=== PATIENT | male | born 1975 | race Hispanic/Latino ===

== ENCOUNTER 2016-10-20 03:07 | Inpatient (IN) | payer OTHER ==
[~2016-10-20] VITALS: Ht 180.3 cm; Wt 106.2 kg
[~2016-10-20 03:07] MED LIST: BACLOFEN10 M1 PO; BUSPIRONE HCL10 M1 PO; ESCITALOPRAM OX10 MG PO; LYRICA75 M1 PO; MELOXICAM15 M1 PO; OXYCODONE HCL15 M1 PO; PANTOPRAZOLE SO40 M1 PO; PERCOCET 5-3251 EACH PO
--- NOTE | 2016-10-20 03:24 | NUR ---
SEE CODE FLOWSHEET FOR ALL CODE INFORMATION. PATIENT ROSC AT 0324 W/ +L AND R FEMORAL PULSES NOTED BY MD HADDAD AND RNS.
--- NOTE | 2016-10-20 03:25 | NUR ---
0324-BP:108/47, HR:128 0325-300MG AMIODORONE AND 2MG NARCAN ADMINISTERED AT THIS TIME PER MD HADDAD DOSE VERIFIED BY THIS RN, ONEYDA RN AND FRANCISCO RN. HR:109.
--- NOTE | 2016-10-20 03:29 | NUR ---
CENTRAL LINE PLACED W/O DIFFICULTY TO R GROIN BY MD HADDAD. GOOD BLOOD RETURN NOTED TO ALL LUMENS. HR:90. LEVO DRIP BEING PREPARED BY THIS RN, ONEYDA SELLERS AND FRANCISCO SELLERS.
--- NOTE | 2016-10-20 03:32 | NUR ---
LEVO DRIP INITIATED AT 10MCG/MIN PER MD HADDAD BY AYAD RN, FRANCISCO SELLERS AND ONEYDA SELLERS.
--- NOTE | 2016-10-20 03:33 | NUR ---
DE DIOS EST W/O DIFFICULTY BY THIS RN PER MD HADDAD. APPROX 50ML CLEAR YELLOW URINE W/ INSERTION. TRIP OBTAINED AND SENT TO LAB BY JORGE LUIS REYES.
--- NOTE | 2016-10-20 03:34 | ED CRITICAL CARE ---
See Addendum History of Present Illness General Chief Complaint: Cardiopulmonary Resuscitation Stated Complaint: CPR Source: EMS, friend Exam Limitations: clinical condition Vital Signs & Intake/Output Vital Signs & Intake/Output Vital Signs Date Time Temp Pulse Resp B/P Pulse O2 O2 Flow FiO2 Ox Delivery Rate 10/20 0501 94.7 125 141/65 10/20 0448 122 22 109/57 94 Ventilator 60% 10/20 044 60 10/20 0423 94.5 115 22 114/65 100 Ventilator 100% 10/20 0409 100 10/20 0359 87 20 83/49 10/20 0359 87 20 100 Ventilator 100% 10/20 035 145 83/49 10/20 0347 145 98/54 10/20 0332 90 10/20 0310 Aerosol 100% Mask Allergies Coded Allergies: No Known Allergies (08/25/16) Reconcile Medications Baclofen 10 MG TABLET 1 TAB PO TID PAIN (Reported) Buspirone HCl 10 MG TABLET 1 TAB PO DAILY ANXIETY (Reported) Escitalopram Oxalate 10 MG TABLET 1 TAB PO DAILY MENTAL HEALTH (Reported) Meloxicam 15 MG TABLET 1 TAB PO DAILY PAIN (Reported) Oxycodone HCl 15 MG TABLET 1 TAB PO TID PAIN (Reported) Oxycodone HCl/Acetaminophen (Percocet 5-325 MG Tablet) 5 MG-325 MG TABLET 1 TAB PO Q8 PRN PAIN Pantoprazole Sodium 40 MG TABLET.DR 1 TAB PO DAILY GERD (Reported) Pregabalin (Lyrica) 75 MG CAPSULE 1 CAP PO BID PAIN (Reported) Triage Nurses Notes Reviewed? yes Onset: Abrupt Duration: minute(s):, continues in ED Timing: single episode today Injury Environment: home Severity: severe Pain Location: unknown Method of Injury: likely heroin overdose Modifying Factors: Improves With: other (with acls in field). Associated Symptoms: apnea, asystole HPI: 41 yo gentleman h/o heroin abuse, presents intubated from the field in asystolic arrest. Per his girlfriend, "I heard a thump in the bathroom.... It was locked... I went in and found him frothing at the mouth and blue... He wasn't breathing... There was a needle in the sink... I called 911." The medics share that he was pulseless and apneic. He was intubated in the field, received narcan 0.8mg and epi x 3. He went briefly into PEA. Past History Travel History Traveled to [place] past 21 day No Medical History Any Pertinent Medical History? 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 No Review of Systems Review of Systems Constitutional: Reports: no symptoms. Eyes: Reports: no symptoms. Ears, Nose, Throat, Mouth: Reports: no symptoms. Respiratory: Reports: no symptoms. Cardiovascular: Reports: no symptoms. Gastrointestinal/Abdominal: Reports: no symptoms. Genitourinary: Reports: no symptoms. Musculoskeletal: Reports: no symptoms. Skin: Reports: no symptoms. Neurological/Psychological: Reports: no symptoms. All Other Systems: Reviewed and Negative Physical Exam Physical Exam General Appearance: well developed/nourished, severe distress Head: atraumatic Eyes: Bilateral: other (fixed,dilated,no corneal reflx). Ears, Nose, Throat, Mouth: hearing grossly normal, 1cm laceration in inner lip, outer lip Neck: normal inspection Respiratory: symmetric breath sounds with BMV. Cardiovascular: no pulse. no heart sounds with auscultation. 2+ symmetric pulses with chest compressions Peripheral Pulses: 2+ carotid (R), 2+ carotid (L) (with chest compressions), 2+ femoral (R), 2+ femoral (L) Gastrointestinal: soft, mildly distended, well healed scars noted. no bowel sounds Back: normal inspection Extremities: normal range of motion Neurologic/Psych: no corneal reflexes, no response to painful stimuli, no spontaneous respirations Skin: pallor, cool to touch Core Measures ACS in differential dx? No CVA/TIA Diagnosis: No Severe Sepsis Present: Yes Septic Shock Present: Yes Progress Differential Diagnoses I considered the following diagnoses in my evaluation of the patient: heroin overdose vs polysubstance abuse vs cardiac arrest, vs dysrhythmia Plan of Care: Orders Procedure Date/time Status LACTIC ACID 10/20 635 Active Lab Add-on Test 10/20 511 Active VENTILATOR PARAMETERS 01/05 0444 Complete Patient Data 10/20 424 Active SPUTUM INDUCTION (GEN) 10/20 417 Complete VENTILATOR PARAMETERS 10/20 354 Complete Rodriguez, Insertion/Removal/Asses 10/20 350 Active CULTURE,URINE 10/20 350 Active LACTIC ACID 10/20 335 Complete ARTERIAL BLOOD GAS (GEN) 10/20 334 Complete URINE DRUG SCREEN FOR ER ONLY 10/20 334 Complete URINALYSIS 10/20 334 Complete TROPONIN LEVEL 10/20 334 Active PARTIAL THROMBOPLASTIN TIME 10/20 334 Complete PROTHROMBIN TIME 10/20 334 Complete AMMONIA 10/20 334 Active MAGNESIUM 10/20 334 Active LIPASE 10/20 334 Active HEPATIC FUNCTION PANEL 10/20 334 Active ETHANOL 10/20 334 Active CBC WITHOUT DIFFERENTIAL 10/20 334 Complete BASIC METABOLIC PANEL 10/20 334 Active AMYLASE 10/20 334 Active ACETONE 10/20 334 Active EKG 10/20 310 Active Laboratory Tests 10/20/16424: pH 7.22 *L, pCO2 46 H, pO2 260 H, HCO3 19 L, ABG O2 Sat (Measured) 96.0, P-50 (Temp Corrected) Y, Carboxyhemoglobin 2.8, O2 Concentration % 100%, Temperature 94.5 L, Respiration Rate 22, O2 Delivery Method ESPRIT, Vent Mode AC, Expiratory Pressure 5, Tidal Volume 550, Phlebotomy Draw Site LEFT RADIAL 10/20/16334: Lactic Acid 11.3 H 10/20/16334: Anion Gap 24 H, Estimated GFR 52 L, BUN/Creatinine Ratio 7.3, Glucose 357 H, Calcium 8.4, Magnesium Pending, Total Bilirubin 0.3, Direct Bilirubin 0.3, AST 580 H, ALT 618 H, Alkaline Phosphatase 88, Ammonia 56 H, Troponin I < 0.01, Total Protein 5.1 L, Albumin 2.9 L, Amylase 87, Lipase 257, PT 10.8, INR 1.03, APTT 40 H, CBC w Diff MAN DIFF ORDERED, RBC 4.18 L, MCV 90.7, MCH 30.1, RDW 13.0, MPV 8.4, Gran % 24.7 L, Lymphocytes % 70.0 H, Monocytes % 3.0, Eosinophils % 1.3, Basophils % 1.0, Absolute Granulocytes 1.7, Segmented Neutrophils 18 L, Band Neutrophils 4, Absolute Lymphocytes 4.8 H, Lymphocytes 76 H, Monocytes 2, Absolute Monocytes 0.2, Absolute Eosinophils 0.1, Absolute Basophils 0.1, Platelet Estimate ADEQUATE, Polychromasia 1+, Ovalocytes FEW, PUBS MCHC 33.2, Fld Total RBCs Counted 100, Serum Alcohol < 10.0, Acetone Level NEGATIVE 10/20/16 0330: Urine Opiates Screen 1378.00, Methadone Screen 41, Barbiturate Screen < 60, Ur Phencyclidine Scrn < 6.00, Amphetamines Screen < 100, U Benzodiazepines Scrn > 800 H, Urine Cocaine Screen > 1000 H, Urine Cannabis Screen < 5.00, Urinalysis LIGHT H, Urine Color YEL, Urine Clarity HAZY H, Urine pH 6.0, Ur Specific [place] >= 1.030, Urine Protein 30 H, Urine Ketones NEG, Urine Nitrite NEG, Urine Bilirubin NEG, Urine Urobilinogen 0.2, Ur Leukocyte Esterase NEG, Ur Microscopic SEDIMENT EXAMINED, Urine RBC 1-3, Urine WBC RARE, Ur Epithelial Cells RARE, Urine Mucus MOD H, Urine Hemoglobin SMALL H, Urine Glucose NEG Microbiology 10/20 329 URINE ROUT: Urine Culture - RECD Diagnostic Imaging: Viewed by Me: Radiology Read. Discussed w/RAD: Radiology Read. CXR Impression: et tube in good position. Initial ED EKG: afib, rvr, wide complex Comments: PATIENT: ROBERTO BARBER PRESENT AGE: 41 PATIENT ACCOUNT NO: [id number] : 77 LOCATION: [facility] ORDERING PHYSICIAN: VALENTINA HADDAD MD SERVICE DATE: 10/20/16 EXAM TYPE: RAD - XRY-PORTABLE CHEST XRAY EXAMINATION: XR PORTABLE CHEST CLINICAL INFORMATION: Intubation COMPARISON: 08/29/2009 TECHNIQUE: Portable view of the chest was obtained. FINDINGS: Endotracheal tube terminates 4.8 cm from the rachel, in good position. Lung volumes are low. There is mild elevation of the right hemidiaphragm. No consolidation, pneumothorax, or pleural effusion. There is likely atelectasis in the upper lobes bilaterally. Pulmonary vascular structures within normal limits for technique. Cardiac and mediastinal contours are also within normal limits for a supine study. No acute fractures are identified. IMPRESSION: Appropriately positioned endotracheal tube. Low lung volumes. No acute pulmonary findings. DICTATED BY: ARON CAMPBELL MD DATE/TIME DICTATED:10/20/16444 FORESTRY FIRE AID:KALYN DATE/TIME TRANSCRIBED:10/20/16444 CONFIDENTIAL, DO NOT COPY WITHOUT APPROPRIATE AUTHORIZATION. <Electronically signed in Other Vendor System> SIGNED BY: ARON CAMPBELL MD 10/20/16 0451 Departure Departure Disposition: STILL A PATIENT Condition: Stable Clinical Impression Primary Impression: Cardiac arrest Secondary Impressions: Cocaine abuse, Heroin overdose, Lactic acidosis Referrals: DAYDAY BEVERLY,DEB Zendejas (PCP/Family) Departure Forms: General Discharge Information Comments 10/20/15, 4:17am.... discussed w/ dr. mosqueda Admission Note Spoke With: JERRY WAYNE MD Documentation of Exam: Documentation of any treatments & extenuating circumstances including Concerns Regarding Discharge (functional status, medication knowledge or non-compliance, living conditions, etc.) that warrant an admission rather than observation: pt with asystolic arrest, likely due to heroin overdose, now with ROSC after 35 minutes of ACLS protocol (20 in field, 15 in ED). Pt now with systolic blood pressure in low teens on max levophed and dopamine, also on narcan drip. Critical Care Note Critical Care Note Critical Care Time: 30-74 min Comments: pt arrived asystolic --> PEA arrest. Pt received multiple rounds of Epi, bicarb x 2, Narcan 2mg iv x 2, 2 liters normal saline.... Pt went into vfib arrest x 2, requiring multiple electrical cardioversion attempts. Pt acheived ROSC at approximately 15 minutes of ED time, (pt was asystolic in the field x 20 minutes).... He then lost pulses. They returned with epi and chest compressions. Presently 4:34am... pt has sbp in 110's, tolerating the vent, on max dose levophed and dopamine, as well as narcan gtt at 2mg/hour, 2 more liters are infusing.
--- NOTE | 2016-10-20 03:42 | NUR ---
PATIENT HR NOTED 26 ON MONITOR, NO PULSES NOTED TO BILATERAL FEMORAL. O2:80% VIA BAG ON ETT AT THIS TIME. MD AT BEDSIDE W/ RESP THERAPIST, AYAD RN, ONEYDA SELLERS AND FRANCISCO SELLERS. CODE INITIATED.
--- NOTE | 2016-10-20 03:47 | NUR ---
SEE CODE FLOWSHEET FOR ALL CODE DETAILS. ROSC AT 0347 W/ +R AND L FEMORAL PULSES NOTED BY MD HADDAD AND RNS. BP:98/54.
[2016-10-20 03:51] LABS: ABSOLUTE BASOPHIL COUNT 0.1 /CUMM (0.0-0.2); ABSOLUTE EOSINOPHIL COUNT 0.1 /CUMM (0.0-0.7); ABSOLUTE GRANULOCYTE CT 1.7 /CUMM (1.4-6.5); ABSOLUTE LYMPH COUNT 4.8 /CUMM (1.2-3.4); ABSOLUTE MONOCYTE COUNT 0.2 /CUMM (0.10-0.60); EOSINOPHIL % 1.3 % (0-5); HEMATOCRIT 37.9 % (42-52); MEAN CORPUSCULAR HGB 30.1 PG (27.0-31.0); MEAN CORPUSCULAR HGB CONC 33.2 G/DL (33.0-37.0); MEAN CORPUSCULAR VOLUME 90.7 FL (80.0-94.0); MEAN PLATELET VOLUME 8.4 FL (7.4-10.4); PLATELET COUNT 237 /CUMM (130-400); RED BLOOD CELL CT 4.18 /CUMM (4.70-6.10); WHITE BLOOD CELL COUNT 6.9 /CUMM (4.8-10.8)
--- NOTE | 2016-10-20 03:51 | NUR ---
LEVO DRIP INCREASED FROM 10MCG/MIN TO 20 MCG/MIN PER MD HADDAD AT THIS TIME. HR:145 ON MONITOR, BP: 83/49. MD AWARE.
[2016-10-20 03:52] LABS: GRANULOCYTE % 24.7 % (42.2-75.2)
--- NOTE | 2016-10-20 03:55 | NUR ---
THREE LITERS NS INFUSING AT PRESENT, TWO OF THE THREE INFUSING VIA PRESSURE BAGS PER MD.
--- NOTE | 2016-10-20 03:59 | NUR ---
HR:87, O2:99% ON VENT W/ O2 AT 100%. DOPAMINE INFUSING AT 5MCG/KG/MIN PER MD HADDAD, DOSE VERIFIED BY THIS RN, ONEYDA SELLERS AND FRANCISCO SELLERS.
[2016-10-20 04:00] LABS: PT 10.8 SEC (9.4-12.5); PTT 40 SEC (25-37)
--- NOTE | 2016-10-20 04:02 | NUR ---
HR:106. NARCAN DRIP INITIATED AT 2MG/HR PER MD HADDAD, DOSE VERIFIED BY AYAD RN, ONEYDA SELLERS AND FRANCISCO SELLERS.
--- NOTE | 2016-10-20 04:14 | NUR ---
CRITICAL TEST RESULTS [id number] ROBERTO BARBER 41 M TESTS AND RESULTS: LACTIC 11.3 Results received and read back by: AUDELIA AZAR Results received date and time: 10/20/16 0414 The following provider was notified of the results, and read the results back: DR HADDAD Notified date and time: 10/20/16 at 0412
--- NOTE | 2016-10-20 04:30 | NUR ---
4TH LITER NS INITIATED BY ONEYDA SELLERS AT THIS TIME PER EMAR.
--- NOTE | 2016-10-20 04:51 | RADIOLOGY REPORT ---
EXAMINATION: XR PORTABLE CHEST CLINICAL INFORMATION: Intubation COMPARISON: 08/29/2009 TECHNIQUE: Portable view of the chest was obtained. FINDINGS: Endotracheal tube terminates 4.8 cm from the rachel, in good position. Lung volumes are low. There is mild elevation of the right hemidiaphragm. No consolidation, pneumothorax, or pleural effusion. There is likely atelectasis in the upper lobes bilaterally. Pulmonary vascular structures within normal limits for technique. Cardiac and mediastinal contours are also within normal limits for a supine study. No acute fractures are identified. IMPRESSION: Appropriately positioned endotracheal tube. Low lung volumes. No acute pulmonary findings.
--- NOTE | 2016-10-20 04:55 | NUR ---
PATIENTS MOTHER AND GIRLFRIEND AT BEDSIDE, MD HADDAD SPEAKING W/ THEM AT THIS TIME TO PROVIDE UPDATE ON POC AND PATIENT CONDITION. [facility] CALLED PER FAMILY REQUEST AT THIS TIME BY BRENDON REYES.
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
--- NOTE | 2016-10-20 05:27 | NUR ---
HOUSE STAFF REMAINS AT BEDSIDE.
--- NOTE | 2016-10-20 05:50 | NUR ---
PATIENT FAMILY SPEAKING W/ [place], EMOTIONAL SUPPORT BEING PROVIDED.
--- NOTE | 2016-10-20 06:26 | NUR ---
PT ASSIGNED TO ROOM 109 ICU
--- NOTE | 2016-10-20 07:16 | NUR ---
REPORT GIVEN TO CHRIS SELLERS IN ICU.
--- NOTE | 2016-10-20 07:23 | Admission Certification ---
Admission Certification Certification Statement - As attending physician, I certify that at the time of - admission, based on clinical presentation, severity of - symptoms, need for further diagnostic testing and - therapeutic interventions, and risk of adverse outcomes - without in-hospital treatment, in my clinical assessment, - this patient requires an acute hospital stay for a minimum - of two nights or longer. I have also considered psychsocial - factors such as support system, advanced age, financial - issues, cognitive issues, and failed out-patient treatments, - past re-admission history, safety of patient, and lack of - compliance as applicable. Specific rationale supporting this admission is: Status post cardiopulmonary arrest, shock
--- NOTE | 2016-10-20 07:50 | NUR ---
FAMILY AND QA INTERN REMAINS AT BEDSIDE. ICU CHARGE NURSE FAIZA RN TO ED FOR TRANSPORT TO ICU.
--- NOTE | 2016-10-20 08:30 | NUR ---
PT WAS ON VENT UNSPONSIVE IN ER. 0815-PT TRANSPORT TO CT HEAD ON VENT 60%FIO2. THEN PT TRANSPORT TO ICU [address] ON VENT. PT MAINTAI O2SAT>94%, NO ISSUES DURING BOTH TRANSPORTS
--- NOTE | 2016-10-20 08:30 | NUR ---
RECEIVED THE PT FROM THE ER AT 0815, ORALLY INTUBATED AND MECHANICALLY VENTILATED PER MD ORDER. PT'S PUPILS ARE FIXED AMD DILATED, THERE IS NO RESPONSE TO ANY TYPE OF STIMULI, ALL EXTREMITIES ARE FLACCID. PT IS ON LEVOPHED AT 20MCG/MIN WELL DOPAMINE AT 5MCG/KG/MIN, BOTH INFUSING VIA THE WHITE PORT OF THE R FEM TLC. PT IS ALSO ON A NARCAN GTT AT 2MG/HR OR 50ML/HR INFUSING VIA A #20 TO THE RAC. ABD IS DISTENDED AND FIRM WITH NORMOACTIVE BOWEL SOUNDS. ALINE BS WITH SCATTERED RHONCHI THROUGHOUT. DE DIOS IN PLACE DRAINING LG AMOUNTS OF PALE YELLOW URINE.
--- NOTE | 2016-10-20 08:43 | CT SCAN REPORT ---
EXAMINATION: NONCONTRAST HEAD CT NONCONTRAST NECK CT INDICATION INFORMATION: Status post fall and loss of consciousness with cardiac arrest COMPARISON: None TECHNIQUE: Separate noncontrast CT examinations of the head and neck were performed. Coronal and sagittal images were created for each examination at the technologist workstation. DLP: 1108.70 mGy-cm FINDINGS: Head: There is significant decrease in syed-white differentiation throughout the cerebral hemispheres, in keeping with edema. There is also effacement of the basilar cisterns. There may be focal dilation of the temporal horns, left greater than right, with the ventricles otherwise appearing decreased in size. No definite acute intracranial hemorrhage is seen, though assessment is limited given the extensive edema. No midline shift. The osseous structures and soft tissues are normal. There is mucosal thickening of the maxillary sinuses and ethmoid air cells bilaterally. The mastoid air cells are well-aerated. Neck: There is anatomic alignment of the vertebral bodies and posterior elements. Vertebral body heights and intervertebral disc spaces are maintained. Mild anterior osteophytes are noted in the lower cervical spine. No evidence of acute fracture. No prevertebral soft tissue swelling. There are several mildly prominent cervical lymph nodes bilaterally. There are patchy regions of consolidation and groundglass opacity in the right upper lobe. Dependent opacity is also present in the left lung. The thyroid gland is unremarkable. IMPRESSION: 1. Diffuse cerebral edema, in keeping with hypoxic ischemic injury in the setting of cardiac arrest. 2. No acute findings identified in the cervical spine. 3. Bilateral upper lung airspace opacities, right greater than left. This critical result was discussed with Lakhwinder Manrique MD on 10/20/2016 8:37 AM, and it was ascertained that the content and urgency of the report was understood at the time of direct communication.
[2016-10-20 08:45] VITALS: BP 100/70; BP 95/62
--- NOTE | 2016-10-20 08:51 | Cons- Cardiology ---
General Information and HPI Consulting Request Date of Consult: 10/20/16 Requested By: JERRY WAYNE MD Reason for Consult: cardiac evaluation postcardiac arrest Source of Information: old records Exam Limitations: unable to give history History of Present Illness: the patient is a 41-year-old male with a history of substance abuse. The patient is currently in the ICU following resuscitation after being found unresponsive by paramedics. The patient was locked in the bath room. He was found on the floor unresponsive. When paramedics arrived, the patient was pulseless and apneic. He was intubated in the field. He received Narcan and epinephrine.he subsequently had pulseless electrical activity. 15 minutes of CPR was performed. In the emergency room, he was asystolic. Multiple rounds of medication were given. Multiple electrical cardioversion were attempted. Ultimately rhythm was restored. Since arrival in the ICU, he has been in sinus tachycardia, on multiple pressors. Allergies/Medications Allergies: Coded Allergies: No Known Allergies (08/25/16) Home Med List: Baclofen 10 MG TABLET 1 TAB PO TID PAIN (Reported) Buspirone HCl 10 MG TABLET 1 TAB PO DAILY ANXIETY (Reported) Escitalopram Oxalate 10 MG TABLET 1 TAB PO DAILY MENTAL HEALTH (Reported) Meloxicam 15 MG TABLET 1 TAB PO DAILY PAIN (Reported) Oxycodone HCl 15 MG TABLET 1 TAB PO TID PAIN (Reported) Oxycodone HCl/Acetaminophen (Percocet 5-325 MG Tablet) 5 MG-325 MG TABLET 1 TAB PO Q8 PRN PAIN Pantoprazole Sodium 40 MG TABLET.DR 1 TAB PO DAILY GERD (Reported) Pregabalin (Lyrica) 75 MG CAPSULE 1 CAP PO BID PAIN (Reported) Current Medications: Current Medications Sig/Rose Start time Last Medication Dose Route Stop Time Status Admin Artificial Tears 2 GTT TID 10/20 1000 AC OPH Dopamine HCl 400 MG ONCE ONE 10/20 0400 AC 10/20 Dextrose/Water 500 ML IV 11/09 2358 0359 Naloxone HCl 20 MG ONCE ONE 10/20 399 AC 10/20 Sodium Chloride 500 ML IV 11/09 2358 0402 Norepinephrine 0 .STK-MED ONE 10/20 0719 DC IV Norepinephrine 4 MG Q24H 10/20 0400 AC 10/20 Dextrose/Water 250 ML IV 0332 Sodium Chloride 1,000 ML Q10H 10/20 0630 AC IV Sodium Chloride 1,000 ML BOLUS ONE 10/20 0400 DC / IV 10/20 0459 0430 Sodium Chloride 1,000 ML BOLUS ONE 10/20 0400 DC / IV 10/20 0459 0355 Sodium Chloride 1,000 ML BOLUS ONE 10/20 0400 DC / IV 10/20 0459 0355 Sodium Chloride 1,000 ML BOLUS ONE 10/20 0400 DC 10/20 IV 10/20 045 0355 Past History Travel History Traveled to [place] past 21 day No Medical History Neurological: NONE EENT: NONE Cardiovascular: NONE Respiratory: NONE Gastrointestinal: HERNIA MESH INFECTION Hepatic: NONE Renal: NONE Musculoskeletal: NONE Psychiatric: anxiety, substance abuse, PTSD Endocrine: NONE Blood Disorders: NONE Cancer(s): 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 Surgical History Surgical History: COLOSTOMY AND REVERSAL Psychosocial History Illicit Drug Use: heroin Exam & Diagnostic Data Vital Signs and I&O Vital Signs Date Time Temp Pulse Resp B/P Pulse O2 O2 Flow FiO2 Ox Delivery Rate 10/20 0749 95.6 147 22 90/60 95 Ventilator 60% 10/20 0630 60 10/20 0536 122 22 113/52 93 Ventilator 60% 10/20 0501 94.7 125 141/65 10/20 0448 122 22 109/57 94 Ventilator 60% 10/20 0442 60 / 0423 94.5 115 22 114/65 100 Ventilator 100% 10/20 0409 100 / 0359 87 20 83/49 10/20 0359 87 20 100 Ventilator 100% 10/20 0351 145 83/49 10/20 0347 145 98/54 10/20 0332 90 10/20 0310 Aerosol 100% Mask Intake & Output 10/20 1600 10/20 0810/20 0000 10/19 1600 10/19 0810/19 0000 Intake Total Output Total 3650 Balance -3650 Output, Urine 3650 Patient 210 lb Weight Physical Exam: General Appearance UNRESPONSIVE, intubated Skin normal HEENT Atraumatic (ET tube intact) Neck Supple, No JVD Lymphatic Cervical nl Cardiovascular Regular Rate, Normal S1, Normal S2, No Murmurs Lungs coarse breath sounds b/l Abdomen distended Neurological pupils a nonreactive light or accommodation, remaining of neurological exam was deferred as patient is unresponsive Extremities No Edema Labs/Zach Results: Laboratory Tests 10/20 10/20 10/20 0825 0425 0335 Blood Gas pH (7.35 - 7.45 PH) 7.25 *L 7.22 *L pCO2 (35 - 45 TORR) 46 H 46 H pO2 (80 - 100 TORR) 99 260 H HCO3 (21 - 28 MEQ/L) 20 L 19 L ABG O2 Sat (Measured) (>96.0 %) 95.0 L 96.0 P-50 (Temp Corrected) Y Carboxyhemoglobin (1.5 - 5.0 %) 1.2 L 2.8 O2 Concentration % 60 100% Temperature (97.0 - 100.0 FARH) 94.5 L Respiration Rate (BPM) 22 22 O2 Delivery Method VENT ESPRIT Vent Mode AC AC Expiratory Pressure (CMH2O/P) 5 5 Tidal Volume (CC) 550 550 Chemistry Lactic Acid (0.7 - 2.1 mmol/L) 11.3 H Miscellaneous Phlebotomy Draw Site LEFT RADIAL LEFT RADIAL 10/20 10/20 0335 0330 Chemistry Sodium (137 - 145 mmol/L) 139 Potassium (3.5 - 5.1 mmol/L) 4.0 Chloride (98 - 107 mmol/L) 95 L Carbon Dioxide (22 - 30 mmol/L) 19 L Anion Gap (5 - 16) 24 H BUN (9 - 20 mg/dL) 11 Creatinine (0.7 - 1.2 mg/dL) 1.5 H Estimated GFR (>60 ml/min) 52 L BUN/Creatinine Ratio (7 - 25 %) 7.3 Glucose (65 - 99 mg/dL) 357 H Calcium (8.4 - 10.2 mg/dL) 8.4 Magnesium (1.6 - 2.3 mg/dL) 3.7 H Total Bilirubin (0.2 - 1.3 mg/dL) 0.3 Direct Bilirubin (< 0.4 mg/dL) 0.3 AST (17 - 59 U/L) 580 H ALT (21 - 72 U/L) 618 H Alkaline Phosphatase (< 127 U/L) 88 Ammonia (9 - 30 umol/L) 56 H Troponin I (<0.11 ng/ml) < 0.01 Total Protein (6.3 - 8.2 g/dL) 5.1 L Albumin (3.5 - 5.0 g/dL) 2.9 L Amylase (30 - 110 U/L) 87 Lipase (23 - 300 U/L) 257 Coagulation PT (9.4 - 12.5 SEC) 10.8 INR (0.90 - 1.17) 1.03 APTT (25 - 37 SEC) 40 H Hematology CBC w Diff MAN DIFF ORDERED WBC (4.8 - 10.8 /CUMM) 6.9 RBC (4.70 - 6.10 /CUMM) 4.18 L Hgb (14.0 - 18.0 G/DL) 12.6 L Hct (42 - 52 %) 37.9 L MCV (80.0 - 94.0 FL) 90.7 MCH (27.0 - 31.0 PG) 30.1 RDW (11.5 - 14.5 %) 13.0 Plt Count (130 - 400 /CUMM) 237 MPV (7.4 - 10.4 FL) 8.4 Gran % (42.2 - 75.2 %) 24.7 L Lymphocytes % (20.5 - 51.1 %) 70.0 H Monocytes % (1.7 - 9.3 %) 3.0 Eosinophils % (0 - 5 %) 1.3 Basophils % (0.0 - 2.0 %) 1.0 Absolute Granulocytes (1.4 - 6.5 /CUMM) 1.7 Segmented Neutrophils (42.2 - 75.2 %) 18 L Band Neutrophils (0.0 - 5.0 %) 4 Absolute Lymphocytes (1.2 - 3.4 /CUMM) 4.8 H Lymphocytes (20.5 - 51.1 %) 76 H Monocytes (1.7 - 9.3 %) 2 Absolute Monocytes (0.10 - 0.60 /CUMM) 0.2 Absolute Eosinophils (0.0 - 0.7 /CUMM) 0.1 Absolute Basophils (0.0 - 0.2 /CUMM) 0.1 Platelet Estimate (ADEQUATE) ADEQUATE Polychromasia 1+ Ovalocytes FEW PUBS MCHC (33.0 - 37.0 G/DL) 33.2 Other Body Source Fld Total RBCs Counted (%) 100 Toxicology Urine Opiates Screen (>2000 NG/ML) 1378.00 Methadone Screen (>300 NG/ML) 41 Barbiturate Screen (>200 NG/ML) < 60 Ur Phencyclidine Scrn (>25 NG/ML) < 6.00 Amphetamines Screen (>1000 NG/ML) < 100 U Benzodiazepines Scrn (>200 NG/ML) > 800 H Urine Cocaine Screen (>300 NG/ML) > 1000 H Urine Cannabis Screen (>50 NG/ML) < 5.00 Serum Alcohol (<10 MG/DL) < 10.0 Acetone Level (NEGATIVE) NEGATIVE Urines Urinalysis LIGHT H Urine Color (YEL,AMB,STR) YEL Urine Clarity (CLEAR) HAZY H Urine pH (5.0 - 8.0) 6.0 Ur Specific [place] (1.001 - 1.035) >= 1.030 Urine Protein (NEG,<30 MG/DL) 30 H Urine Ketones (NEG) NEG Urine Nitrite (NEG) NEG Urine Bilirubin (NEG) NEG Urine Urobilinogen (0.1 - 1.0 EU/dl) 0.2 Ur Leukocyte Esterase (NEG) NEG Ur Microscopic SEDIMENT EXAMINED Urine RBC (0 - 5 /HPF) 1-3 Urine WBC (0 - 2 /HPF) RARE Ur Epithelial Cells (NONE,FEW) RARE Urine Mucus (FEW,NONE) MOD H Urine Hemoglobin (NEG) SMALL H Urine Glucose (N MG/DL) NEG Diagnostic Data CXR Results FINDINGS: Endotracheal tube terminates 4.8 cm from the rachel, in good position. Lung volumes are low. There is mild elevation of the right hemidiaphragm. No consolidation, pneumothorax, or pleural effusion. There is likely atelectasis in the upper lobes bilaterally. Pulmonary vascular structures within normal limits for technique. Cardiac and mediastinal contours are also within normal limits for a supine study. No acute fractures are identified. IMPRESSION: Appropriately positioned endotracheal tube. Low lung volumes. No acute pulmonary findings. Assessment/Plan Assessment/Plan assessment: 1. Status post cardiac arrest, likely related to overdose 2. Bilateral pulmonary infiltrates 3. Acute organ dysfunction likely re related to hypotension and hypoperfusion 4. Acute renal insufficiency 5. Shock liver 6. GI bleed 7. Probable anoxic encephalopathy Recommendations: -Continue all supportive care as outlined -Trend troponin until decreasing -ECG later today and again in the morning -Echocardiogram to assess left ventricular function -Neurology input pending Consult Acknowledgment - Thank you for your consult request.
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
[2016-10-20 10:00] VITALS: BP 98/74
--- NOTE | 2016-10-20 10:37 | RADIOLOGY REPORT ---
EXAMINATION: XR PORTABLE CHEST CLINICAL INFORMATION: Aspiration pneumonia. Status post intubation. COMPARISON: 10/20/2016 TECHNIQUE: Portable view of the chest was obtained. FINDINGS: The endotracheal tube terminates 4.5 cm above the rachel. Enteric tube extends through the esophagus, terminating in the region of the gastroesophageal junction. Cardiac leads overlie the chest. Low lung volumes. Persistent retrocardiac opacity with air bronchograms. Patchy right perihilar opacity. No pneumothorax. No pleural effusion. The cardiomediastinal silhouette is unchanged. IMPRESSION: 1. Endotracheal tube terminating 4.5 cm above the rachel. 2. Enteric tube terminating in the region of the gastroesophageal junction. Advancement recommended. 3. Persistent retrocardiac opacity which could represent aspiration, atelectasis or pneumonia.
--- NOTE | 2016-10-20 10:39 | RADIOLOGY REPORT ---
EXAMINATION: XR ABDOMEN CLINICAL INDICATION: Status post repair for incarcerated hernia. COMPARISON: 08/30/2009 TECHNIQUE: Portable supine view of the abdomen FINDINGS: The enteric tube terminates in the region of the gastroesophageal junction. There is a right femoral vascular catheter noted which appears looped on itself. The stomach is distended with gas. Gas is seen within nondilated small and large bowel. This does not appear obstructive. No acute osseous abnormality. IMPRESSION: Gaseous distention of the stomach. Scattered gas in small and large bowel. Enteric tube terminating in the region of the gastroesophageal junction. Advancement recommended. Right femoral vascular catheter appears looped on itself. Repositioning suggested.
--- NOTE | 2016-10-20 10:51 | NUR ---
DISCUSSED CASE WITH ORGAN REEL HOOKER WITH HISTORY DISCLOSURE AND CASE DISCUSSION DONE FOR REFERRAL PROCESS. ORGAN REEL HOOKER NAMED LUIS BUCHANAN, CASE #[id number].
[2016-10-20 12:00] VITALS: BP 107/76
[2016-10-20 12:37] LABS: ABSOLUTE EOSINOPHIL COUNT 0.1 /CUMM (0.0-0.7); ABSOLUTE GRANULOCYTE CT 12.6 /CUMM (1.4-6.5); EOSINOPHIL % 0.7 % (0-5)
[2016-10-20 12:45] LABS: ABSOLUTE BASOPHIL COUNT 0 /CUMM (0.0-0.2); ABSOLUTE LYMPH COUNT 2.4 /CUMM (1.2-3.4); ABSOLUTE MONOCYTE COUNT 0.7 /CUMM (0.10-0.60); BASOPHIL % 0.3 % (0.0-2.0); MEAN CORPUSCULAR HGB 29.9 PG (27.0-31.0); MEAN CORPUSCULAR HGB CONC 33.1 G/DL (33.0-37.0); MEAN CORPUSCULAR VOLUME 90.4 FL (80.0-94.0); PLATELET COUNT 288 /CUMM (130-400); RBC DISTRIBUTION WIDTH 13.3 % (11.5-14.5)
[2016-10-20 12:46] LABS: GRANULOCYTE % 79.5 % (42.2-75.2); HEMATOCRIT 51.3 % (42-52); RED BLOOD CELL CT 5.68 /CUMM (4.70-6.10); WHITE BLOOD CELL COUNT 15.9 /CUMM (4.8-10.8)
[2016-10-20 14:00] VITALS: BP 162/98
--- NOTE | 2016-10-20 14:45 | NUR ---
PT IS HAVING A BEDSIDE ECHO PERFORMED.
--- NOTE | 2016-10-20 15:01 | Cons- Neurology ---
See Addendum General Information and HPI Consulting Request Date of Consult: 10/20/16 Requested By: JERRY WAYNE MD Reason for Consult: anoxic brain injury Source of Information: old records, icu staff Exam Limitations: unable to give history History of Present Illness: 41-year-old man found unresponsive at home not breathing and pulseless. From the medical record it appears he had locked himself in the bathroom and injected heroin, a syringe was apparently found. EMT began CPR, pulseless electric trickle activity was found, CPR was continued in the emergency department. No seizures have been recognized, no prior neurologic history known. Apparently the cooling protocol was deferred on admission to the ICU. Allergies/Medications Allergies: Coded Allergies: No Known Allergies (08/25/16) Home Med List: Baclofen 10 MG TABLET 1 TAB PO TID PAIN (Reported) Buspirone HCl 10 MG TABLET 1 TAB PO DAILY ANXIETY (Reported) Escitalopram Oxalate 10 MG TABLET 1 TAB PO DAILY MENTAL HEALTH (Reported) Meloxicam 15 MG TABLET 1 TAB PO DAILY PAIN (Reported) Oxycodone HCl 15 MG TABLET 1 TAB PO TID PAIN (Reported) Oxycodone HCl/Acetaminophen (Percocet 5-325 MG Tablet) 5 MG-325 MG TABLET 1 TAB PO Q8 PRN PAIN Pantoprazole Sodium 40 MG TABLET.DR 1 TAB PO DAILY GERD (Reported) Pregabalin (Lyrica) 75 MG CAPSULE 1 CAP PO BID PAIN (Reported) Current Medications: Current Medications Sig/Rose Start time Last Medication Dose Route Stop Time Status Admin Artificial Tears 2 GTT TID 10/20 1000 AC OPH Calcium Gluconate 1 GM ONCE ONE 10/20 141 AC Sodium Chloride 100 ML IV 10/20 1514 Dextrose 25 GM ONCE ONE 10/20 1415 DC IV 10/20 1416 Dopamine HCl 400 MG ONCE ONE 10/20 0400 AC 10/20 Dextrose/Water 500 ML IV 11/09 2359 0359 Insulin Human Regular 10 UNITS ONCE ONE 10/20 1415 DC IV 10/20 141 Naloxone HCl 20 MG ONCE ONE 10/20 0400 AC 10/20 Sodium Chloride 500 ML IV 11/09 2359 0402 Norepinephrine 4 MG Q7H 10/20 1030 AC 10/20 Dextrose/Water 250 ML IV 1105 Norepinephrine 0 .STK-MED ONE 10/20 0719 DC IV Norepinephrine 4 MG Q24H 10/20 0400 DC 10/20 Dextrose/Water 250 ML IV 0332 Pantoprazole Sodium 40 MG BID 10/20 1013 AC 10/20 IV 1048 Sodium Chloride 1,000 ML Q10H 10/20 0630 AC 10/20 IV 0914 Sodium Chloride 1,000 ML BOLUS ONE 10/20 0400 DC 10/20 IV 10/20 0459 0430 Sodium Chloride 1,000 ML BOLUS ONE 10/20 0400 DC 10/20 IV 10/20 0459 0355 Sodium Chloride 1,000 ML BOLUS ONE 10/20 0400 DC 10/20 IV 10/20 0459 0355 Sodium Chloride 1,000 ML BOLUS ONE 10/20 0400 DC 10/20 IV 10/20 0459 0355 Sodium Polystyrene 120 ML ONCE ONE 10/20 1330 CAN Sulfonate PO 10/20 1331 Vasopressin 40 UNIT Q16H 10/20 1045 AC 10/20 Sodium Chloride 100 ML IV 1049 Review of Systems Review of Systems: unobtainable Past History Travel History Traveled to [place] past 21 day No Medical History Blood Transfusion Hx: No Neurological: NONE EENT: NONE Cardiovascular: NONE Respiratory: NONE Gastrointestinal: HERNIA MESH INFECTION Hepatic: NONE Renal: NONE Musculoskeletal: NONE Psychiatric: anxiety, substance abuse, PTSD Endocrine: NONE Blood Disorders: NONE Cancer(s): NONE 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 Home Services at Home: None Smoking Status: Current Everyday Smoker Illicit Drug Use: heroin Exam & Diagnostic Data Vital Signs and I&O Vital Signs Date Time Temp Pulse Resp B/P Pulse O2 O2 Flow FiO2 Ox Delivery Rate 10/20 1410 40 10/20 1400 99.9 136 22 162/98 10/20 1200 99.9 133 22 107/76 10/20 1200 94 Ventilator 50% 10/20 1154 50 10/20 1105 98.0 131 22 87/57 10/20 1000 98.0 140 22 98/74 10/20 0845 98.0 148 22 95/62 10/20 0845 98.0 148 22 100/70 94 Ventilator 60% 10/20 0830 94 Ventilator 60% 10/20 0825 60 10/20 0749 95.6 147 22 90/60 95 Ventilator 60% 10/20 0630 60 10/20 0536 122 22 113/52 93 Ventilator 60% 10/20 0501 94.7 125 141/65 10/20 0448 122 22 109/57 94 Ventilator 60% 10/20 0442 60 10/20 0423 94.5 115 22 114/65 100 Ventilator 100% 10/20 0409 100 10/20 0359 87 20 83/49 10/20 0359 87 20 100 Ventilator 100% 10/20 0351 145 83/49 10/20 0347 145 98/54 10/20 0332 90 10/20 0310 Aerosol 100% Mask Intake & Output 10/20 1600 10/20 0800 10/20 0000 Intake Total 1764 Output Total 1695 3650 Balance 69 -3650 Intake, IV 1764 Output, 70 Gastric Drainage Output, Urine 1625 3650 Patient 210 lb Weight Physical Exam: The patient is lying motionless intubated with no spontaneous respirations even on holding the ventilator 20 seconds. Skin color is good. Pupils are dilated and fixed. Scopic exam still shows sharp disc margins but the cups are effaced and veins engorged. No response to nail bed pressure or supraorbital pressure bilaterally. Oculocephalic reflexes absent, Corneal reflexes absent. No gag on manipulation of the ET tube. Motor tone flaccid. Tendon reflexes still present, plantar responses silent. Remaining elements of the complete neurologic exam cannot be performed due to the clinical state. Last 48 Hours of Lab Results: Laboratory Tests 10/20 10/20 10/20 1125 1125 1024 Blood Gas pH (7.35 - 7.45 PH) 7.28 *L pCO2 (35 - 45 TORR) 43 pO2 (80 - 100 TORR) 118 H HCO3 (21 - 28 MEQ/L) 18 L ABG O2 Sat (Measured) (>96.0 %) 97.0 Carboxyhemoglobin (1.5 - 5.0 %) 0.6 L O2 Concentration % 50% Temperature (97.0 - 100.0 FARH) 98.0 Respiration Rate (BPM) 22 O2 Delivery Method ESPRIT Vent Mode VC-AC Expiratory Pressure (CMH2O/P) 5 Tidal Volume (CC) 550 Chemistry Sodium (137 - 145 mmol/L) 147 H Potassium (3.5 - 5.1 mmol/L) 6.0 *H Chloride (98 - 107 mmol/L) 107 Carbon Dioxide (22 - 30 mmol/L) 27 Anion Gap (5 - 16) 13 BUN (9 - 20 mg/dL) 18 Creatinine (0.7 - 1.2 mg/dL) 1.7 H Estimated GFR (>60 ml/min) 45 L BUN/Creatinine Ratio (7 - 25 %) 10.6 Lactic Acid (0.7 - 2.1 mmol/L) 1.5 Phosphorus (2.5 - 4.5 mg/dL) 6.1 H Magnesium (1.6 - 2.3 mg/dL) 2.4 H Total Bilirubin (0.2 - 1.3 mg/dL) 0.5 Direct Bilirubin (< 0.4 mg/dL) 0.4 AST (17 - 59 U/L) 1501 H ALT (21 - 72 U/L) 1349 H Alkaline Phosphatase (< 127 U/L) 110 Troponin I (<0.11 ng/ml) 7.76 *H Total Protein (6.3 - 8.2 g/dL) 6.9 Albumin (3.5 - 5.0 g/dL) 3.9 Hematology CBC w Diff NO MAN DIFF REQ WBC (4.8 - 10.8 /CUMM) 15.9 H RBC (4.70 - 6.10 /CUMM) 5.68 Hgb (14.0 - 18.0 G/DL) 17.0 Hct (42 - 52 %) 51.3 MCV (80.0 - 94.0 FL) 90.4 MCH (27.0 - 31.0 PG) 29.9 RDW (11.5 - 14.5 %) 13.3 Plt Count (130 - 400 /CUMM) 288 MPV (7.4 - 10.4 FL) 8.0 Gran % (42.2 - 75.2 %) 79.5 H Lymphocytes % (20.5 - 51.1 %) 14.9 L Monocytes % (1.7 - 9.3 %) 4.6 Eosinophils % (0 - 5 %) 0.7 Basophils % (0.0 - 2.0 %) 0.3 Absolute Granulocytes (1.4 - 6.5 /CUMM) 12.6 H Absolute Lymphocytes (1.2 - 3.4 /CUMM) 2.4 Absolute Monocytes (0.10 - 0.60 /CUMM) 0.7 H Absolute Eosinophils (0.0 - 0.7 /CUMM) 0.1 Absolute Basophils (0.0 - 0.2 /CUMM) 0 PUBS MCHC (33.0 - 37.0 G/DL) 33.1 Miscellaneous Phlebotomy Draw Site RIGHT RADIAL 10/20 10/20 10/20 10/20 0900 0830 0425 0335 Blood Gas pH (7.35 - 7.45 PH) 7.25 *L 7.22 *L pCO2 (35 - 45 TORR) 46 H 46 H pO2 (80 - 100 TORR) 99 260 H HCO3 (21 - 28 MEQ/L) 20 L 19 L ABG O2 Sat (Measured) (>96.0 %) 95.0 L 96.0 P-50 (Temp Corrected) Y Carboxyhemoglobin (1.5 - 5.0 %) 1.2 L 2.8 O2 Concentration % 60 100% Temperature (97.0 - 100.0 FARH) 94.5 L Respiration Rate (BPM) 22 22 O2 Delivery Method VENT ESPRIT Vent Mode AC AC Expiratory Pressure (CMH2O/P) 5 5 Tidal Volume (CC) 550 550 Chemistry Lactic Acid (0.7 - 2.1 mmol/L) 11.3 H Troponin I Cancelled Miscellaneous Phlebotomy Draw Site LEFT RADIAL LEFT RADIAL 10/20 10/20 0335 0330 Chemistry Sodium (137 - 145 mmol/L) 139 Potassium (3.5 - 5.1 mmol/L) 4.0 Chloride (98 - 107 mmol/L) 95 L Carbon Dioxide (22 - 30 mmol/L) 19 L Anion Gap (5 - 16) 24 H BUN (9 - 20 mg/dL) 11 Creatinine (0.7 - 1.2 mg/dL) 1.5 H Estimated GFR (>60 ml/min) 52 L BUN/Creatinine Ratio (7 - 25 %) 7.3 Glucose (65 - 99 mg/dL) 357 H Calcium (8.4 - 10.2 mg/dL) 8.4 Magnesium (1.6 - 2.3 mg/dL) 3.7 H Total Bilirubin (0.2 - 1.3 mg/dL) 0.3 Direct Bilirubin (< 0.4 mg/dL) 0.3 AST (17 - 59 U/L) 580 H ALT (21 - 72 U/L) 618 H Alkaline Phosphatase (< 127 U/L) 88 Ammonia (9 - 30 umol/L) 56 H Troponin I (<0.11 ng/ml) < 0.01 Total Protein (6.3 - 8.2 g/dL) 5.1 L Albumin (3.5 - 5.0 g/dL) 2.9 L Amylase (30 - 110 U/L) 87 Lipase (23 - 300 U/L) 257 Coagulation PT (9.4 - 12.5 SEC) 10.8 INR (0.90 - 1.17) 1.03 APTT (25 - 37 SEC) 40 H Hematology CBC w Diff MAN DIFF ORDERED WBC (4.8 - 10.8 /CUMM) 6.9 RBC (4.70 - 6.10 /CUMM) 4.18 L Hgb (14.0 - 18.0 G/DL) 12.6 L Hct (42 - 52 %) 37.9 L MCV (80.0 - 94.0 FL) 90.7 MCH (27.0 - 31.0 PG) 30.1 RDW (11.5 - 14.5 %) 13.0 Plt Count (130 - 400 /CUMM) 237 MPV (7.4 - 10.4 FL) 8.4 Gran % (42.2 - 75.2 %) 24.7 L Lymphocytes % (20.5 - 51.1 %) 70.0 H Monocytes % (1.7 - 9.3 %) 3.0 Eosinophils % (0 - 5 %) 1.3 Basophils % (0.0 - 2.0 %) 1.0 Absolute Granulocytes (1.4 - 6.5 /CUMM) 1.7 Segmented Neutrophils (42.2 - 75.2 %) 18 L Band Neutrophils (0.0 - 5.0 %) 4 Absolute Lymphocytes (1.2 - 3.4 /CUMM) 4.8 H Lymphocytes (20.5 - 51.1 %) 76 H Monocytes (1.7 - 9.3 %) 2 Absolute Monocytes (0.10 - 0.60 /CUMM) 0.2 Absolute Eosinophils (0.0 - 0.7 /CUMM) 0.1 Absolute Basophils (0.0 - 0.2 /CUMM) 0.1 Platelet Estimate (ADEQUATE) ADEQUATE Polychromasia 1+ Ovalocytes FEW PUBS MCHC (33.0 - 37.0 G/DL) 33.2 Other Body Source Fld Total RBCs Counted (%) 100 Toxicology Urine Opiates Screen (>2000 NG/ML) 1378.00 Methadone Screen (>300 NG/ML) 41 Barbiturate Screen (>200 NG/ML) < 60 Ur Phencyclidine Scrn (>25 NG/ML) < 6.00 Amphetamines Screen (>1000 NG/ML) < 100 U Benzodiazepines Scrn (>200 NG/ML) > 800 H Urine Cocaine Screen (>300 NG/ML) > 1000 H Urine Cannabis Screen (>50 NG/ML) < 5.00 Serum Alcohol (<10 MG/DL) < 10.0 Acetone Level (NEGATIVE) NEGATIVE Urines Urinalysis LIGHT H Urine Color (YEL,AMB,STR) YEL Urine Clarity (CLEAR) HAZY H Urine pH (5.0 - 8.0) 6.0 Ur Specific [place] (1.001 - 1.035) >= 1.030 Urine Protein (NEG,<30 MG/DL) 30 H Urine Ketones (NEG) NEG Urine Nitrite (NEG) NEG Urine Bilirubin (NEG) NEG Urine Urobilinogen (0.1 - 1.0 EU/dl) 0.2 Ur Leukocyte Esterase (NEG) NEG Ur Microscopic SEDIMENT EXAMINED Urine RBC (0 - 5 /HPF) 1-3 Urine WBC (0 - 2 /HPF) RARE Ur Epithelial Cells (NONE,FEW) RARE Urine Mucus (FEW,NONE) MOD H Urine Hemoglobin (NEG) SMALL H Urine Glucose (N MG/DL) NEG Imaging/Other Studies: CT head: There is significant decrease in syed-white differentiation throughout the cerebral hemispheres, in keeping with edema. There is also effacement of the basilar cisterns. There may be focal dilation of the temporal horns, left greater than right, with the ventricles otherwise appearing decreased in size. No definite acute intracranial hemorrhage is seen, though assessment is limited given the extensive edema. No midline shift. Assessment/Plan Assessment: Anoxic brain injury day 1. Prolonged pulselessness. On bedside exam no sign of cerebral activity and changes on CT are a very poor prognostic sign. Recommendations: maintain support another 24h EEG tomorrow if not clinically improved then, eeg shows loss of activity then further evaluation for brain Consult Acknowledgment - Thank you for your consult request.
--- NOTE | 2016-10-20 15:44 | NUR ---
PT'S K+ FROM 1125 WAS 6.0. INITIALLY THE PT WAS ORDERED KAEXYLATE 120ML PO. THE NGT IS NOT PLACE AND CANNOT BE ADVANCED WITHOUT MEETING RESISTANCE THE ORDER WAS DC'D AND INSTEAD THE PT WAS ADMINISTERED CA GLUCONATE 1 GM/D50 25GM AND INSULIN 10U IV AT 1515. REPEAT LABS DUE AT 1800.
--- NOTE | 2016-10-20 15:53 | NUR ---
THROUGHOUT THE DAY THE PT'S PRESSORS WERE TITRATED. INITIALLY ATTEMPTED TO WEAN THE DOPAMINE DOWN AT 0915 FROM 5MG/KG/MIN TO 4MCG. BY 1015 THE BP HAD DECREASED TO THE 70'S TO 80'S AND THE DOPAMINE WAS RETURNED TO 5MCG. PER DR BAZAN VASOPRESSIN WAS ADDED AT 1052 AT A RATE OF 0.02UNITS/MIN OR 6ML/HR. AT 1130 THE PT'S BP WAS 112/88 AND THE DOPAMINE TITRATION WAS INITIATED AGAIN-GOING DOWN BY 1MCG/MIN. BY 1345 THE PT'S BP WAS 144/91, AT THIS TIME THE DOPAMINE GTT WAS STOPPED AND DR SOFIA STREET WAS INFORMED. AT 1400 THE PT'S BP HAD INCREASED TO 162/98 AND AT THAT TIME AFTER DISCUSSION WITH DR STREET THE LEVO DRIP WAS STOPPED. PT REMAINS ON THE VASOPRESSIN AT THIS TIME BP IS 101/63. REMAINS UNRESPONSIVE WITH FIXED AND DILATED PUPILS. MANY ATTEMPTS WERE MADE TO PLACE AN OGT OR NGT THIS AM, FINALLY AN NGT WAS PLACED TO THE L NARE HOWEVER, THE AXR SHOWS THE NGT IS AT THE GASTROESOPHAGEAL JUNCTION. WILL DISCUSS WITH GI WHEN THEY COME IF THE NGT SHOULD REMAIN AND POSSIBLY BE ADVANCED BY GI OR REMOVED ALL TOGETHER.
[2016-10-20 16:00] VITALS: BP 90/60
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
--- NOTE | 2016-10-20 18:38 | NUR ---
ATTEMPTED TO DRAW 1800 LABS FROM ALL 3 PORTS OF THE TLC-DESPITE FLUSHING EACH PORT WITH 10ML OF NS WAS UNABLE TO GET ANY BLOOD RETURN. PERFORMED A PERIPHERAL STICK. DR KORTNEY MARVIN NOTIFIED WELL KALI MCKENNA PA-C R/Y AXR SHOWING TLC IS LOOPED ON ITSELF. AWAITING FURTHER DETERMINATION OF PLAN IN REGARDS TO TLC.
--- NOTE | 2016-10-20 22:00 | NUR ---
AXILLARY TEMP FOUND TO BE 102.5 MD BROWN MADE AWARE. IV TYLENOL AND COOLING BLANKET ORDERED PER MD BROWN. 2230-RECTAL TEMP 103.1. COOLING BLANKET APPLIED. ST 130'S.
[2016-10-21] VITALS: BP 98/60
--- NOTE | 2016-10-21 03:37 | NUR ---
URINE OUTPUT FOR LAST HOUR 640ML. MD BARKER MADE AWARE. IVF DECREASED TO 50ML/HR AND MONITOR URINE FOR NEXT 2 HRS PER MD ORDERS. ALL PRESSORS HAVE BEEN TITRATED OFF.SBP 110'S. HR 120'S ST. WILL CONT TO MONITOR
--- NOTE | 2016-10-21 03:40 | NUR ---
TEMP 99.4, COOLING BLANKET TURNED OFF AT THIS TIME. RECTAL PROBE MONITORING TEMP. WILL CONT TO MONITOR.
[2016-10-21 05:17] LABS: ABSOLUTE BASOPHIL COUNT 0 /CUMM (0.0-0.2); ABSOLUTE EOSINOPHIL COUNT 0.1 /CUMM (0.0-0.7); ABSOLUTE GRANULOCYTE CT 8.1 /CUMM (1.4-6.5); ABSOLUTE LYMPH COUNT 2.4 /CUMM (1.2-3.4); ABSOLUTE MONOCYTE COUNT 1.2 /CUMM (0.10-0.60); BASOPHIL % 0.4 % (0.0-2.0); EOSINOPHIL % 0.9 % (0-5); GRANULOCYTE % 68.2 % (42.2-75.2); MEAN CORPUSCULAR HGB 29.9 PG (27.0-31.0); MEAN CORPUSCULAR HGB CONC 33.4 G/DL (33.0-37.0); MEAN CORPUSCULAR VOLUME 89.4 FL (80.0-94.0); MEAN PLATELET VOLUME 8.2 FL (7.4-10.4); PLATELET COUNT 178 /CUMM (130-400); RBC DISTRIBUTION WIDTH 13.6 % (11.5-14.5); RED BLOOD CELL CT 5.03 /CUMM (4.70-6.10); WHITE BLOOD CELL COUNT 11.9 /CUMM (4.8-10.8)
--- NOTE | 2016-10-21 06:36 | Event Note ---
Event Note Event Note: Situation: * Increased urine output Brief: * UOP was over 400cc/hr for 3hrs * In the setting of CT head findings, DDx likely secondary to central diabetes insipidus * Patient was previously on NS @ 100 mL/hr * Calculated free water deficit: Approximately 3.9 L * BP has remained stable and pressors were discontinued at 1100Pm last night Assessment and plan: * Current sodium: 149 * Discusssed with Dr Siegel about plans for initiating DDAVP. Recommendations at this time are for 2mcg SQ * In the setting of 3.9L free water deficit, he also recommeds D5W @ 110-150/hr. Trend Na Q4-6hrs
[2016-10-21 08:00] VITALS: BP 113/66
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
[2016-10-21 11:10] LABS: ABSOLUTE BASOPHIL COUNT 0 /CUMM (0.0-0.2); ABSOLUTE EOSINOPHIL COUNT 0.2 /CUMM (0.0-0.7); ABSOLUTE GRANULOCYTE CT 7.5 /CUMM (1.4-6.5); ABSOLUTE LYMPH COUNT 2.4 /CUMM (1.2-3.4); BASOPHIL % 0.4 % (0.0-2.0); EOSINOPHIL % 1.8 % (0-5); GRANULOCYTE % 67.5 % (42.2-75.2); HEMATOCRIT 47.2 % (42-52); MEAN CORPUSCULAR HGB CONC 33.2 G/DL (33.0-37.0); MEAN CORPUSCULAR VOLUME 90.5 FL (80.0-94.0); MEAN PLATELET VOLUME 8.6 FL (7.4-10.4); PLATELET COUNT 138 /CUMM (130-400); RBC DISTRIBUTION WIDTH 13.8 % (11.5-14.5); RED BLOOD CELL CT 5.22 /CUMM (4.70-6.10); WHITE BLOOD CELL COUNT 11.1 /CUMM (4.8-10.8)
--- NOTE | 2016-10-21 11:39 | PN- Nephrology ---
Assessment/Plan Assessment: 1. Acute kidney injury appears to have stabilized although he is now hemodynamically unstable again 2. Hypernatremia with high urine output and urine osmolality of 765 yesterday, although urine SG down this morning suggesting that he may now have developed CDI 3. 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 Agree with crystalloid for now for blood pressure support but there is a risk of worsening cerebral edema. Pressor support would be the preferred approach. 2. Repeat urine osmolality now (which may be high post DDAVP) and administer further DDAVP only as clinically dictated by his urine output, urine osmolality and serum sodium. 3. Decision regarding diagnosis of brain per Neurology Subjective Subjective: Patient remains intubated, vented, unresponsive with no brainstem reflexes. Creatinine down slightly then up again, sodium up slightly, urine osmolality high at 765 yesterday but specific gravity down to 1.005 this morning with urine output of approximately 5800 mL/24 hours. Has already received DDAVP. Objective Vital Signs and I&Os Vital Signs Date Time Temp Pulse Resp B/P Pulse O2 O2 Flow FiO2 Ox Delivery Rate 10/21 1015 120 80/00 10/21 0834 40 10/21 0616 40 10/21 0403 40 10/21 0400 95 Ventilator 50% 10/21 0146 40 10/21 0000 101.9 130 22 98/60 95 Ventilator 50% 10/21 0000 95 Ventilator 50% 10/20 2353 102.3 10/20 2242 40 10/20 2237 103.1 10/20 2000 40 10/20 2000 96 Ventilator 50% 10/20 1625 40 10/20 1600 99.5 134 22 90/60 10/20 1600 95 Ventilator 50% 10/20 1600 99.5 134 22 90/60 95 Ventilator 50% 10/20 1410 40 10/20 1400 99.9 136 22 162/98 10/20 1200 99.9 133 22 107/76 10/20 1200 94 Ventilator 50% 10/20 1154 50 Intake & Output 10/21 0400 10/20 1600 10/20 0400 10/19 0400 Intake Total 389 984 2904 Output Total 2100 450 5295 50 Balance -1354 481 -3531 -50 Intake, IV 887 370 5534 Intake, Oral 0 0 Number 0 0 Bowel Movements Output, 0 0 70 Gastric Drainage Output, Urine 2100 450 5225 50 Patient 225 lb 210 lb Weight Physical Exam: General: Well-developed white male, intubated, vented, unresponsive, without spontaneous respirations Skin: No rash or jaundice; multiple tattoos noted HEENT: Conjunctivae pale, sclerae anicteric, pupils fully dilated and unresponsive Neck: Without masses or thyromegaly, no supraclavicular or cervical adenopathy Chest: Clear anterolaterally Heart: Regular rate and rhythm without S3 or rub Abdomen: Distended, multiple surgical wounds which appear to be well-healed, no palpable masses or organomegaly Extremities: Without cyanosis or edema Neuro: Fixed and dilated pupils, no spontaneous respirations, no corneal reflexes, unresponsive to noxious stimuli, no focal findings Results Pertinent Lab Results: Laboratory Tests 10/21 10/21 0945 0540 Blood Gas pH (7.35 - 7.45 PH) 7.39 pCO2 (35 - 45 TORR) 39 pO2 (80 - 100 TORR) 78 L HCO3 (21 - 28 MEQ/L) 23 ABG O2 Sat (Measured) (>96.0 %) 94.0 L P-50 (Temp Corrected) Y Carboxyhemoglobin (1.5 - 5.0 %) 0.9 L O2 Concentration % 40% Temperature (97.0 - 100.0 FARH) 99.8 Respiration Rate (BPM) 22 O2 Delivery Method ESPRIT Vent Mode AC Expiratory Pressure (CMH2O/P) 5 Tidal Volume (CC) 550 Chemistry Sodium (137 - 145 mmol/L) 151 H Potassium (3.5 - 5.1 mmol/L) 5.0 Chloride (98 - 107 mmol/L) 111 H Carbon Dioxide (22 - 30 mmol/L) 29 Anion Gap (5 - 16) 11 BUN (9 - 20 mg/dL) 26 H Creatinine (0.7 - 1.2 mg/dL) 1.8 H Estimated GFR (>60 ml/min) 42 L BUN/Creatinine Ratio (7 - 25 %) 14.4 Hematology CBC w Diff NO MAN DIFF REQ WBC (4.8 - 10.8 /CUMM) 11.1 H RBC (4.70 - 6.10 /CUMM) 5.22 Hgb (14.0 - 18.0 G/DL) 15.6 Hct (42 - 52 %) 47.2 MCV (80.0 - 94.0 FL) 90.5 MCH (27.0 - 31.0 PG) 30.0 RDW (11.5 - 14.5 %) 13.8 Plt Count (130 - 400 /CUMM) 138 MPV (7.4 - 10.4 FL) 8.6 Gran % (42.2 - 75.2 %) 67.5 Lymphocytes % (20.5 - 51.1 %) 21.7 Monocytes % (1.7 - 9.3 %) 8.6 Eosinophils % (0 - 5 %) 1.8 Basophils % (0.0 - 2.0 %) 0.4 Absolute Granulocytes (1.4 - 6.5 /CUMM) 7.5 H Absolute Lymphocytes (1.2 - 3.4 /CUMM) 2.4 Absolute Monocytes (0.10 - 0.60 /CUMM) 1.0 H Absolute Eosinophils (0.0 - 0.7 /CUMM) 0.2 Absolute Basophils (0.0 - 0.2 /CUMM) 0 PUBS MCHC (33.0 - 37.0 G/DL) 33.2 Miscellaneous Phlebotomy Draw Site RIGHT BRACHIAL 10/21 10/21 0430 0420 Chemistry Sodium (137 - 145 mmol/L) 149 H Potassium (3.5 - 5.1 mmol/L) 4.9 Chloride (98 - 107 mmol/L) 113 H Carbon Dioxide (22 - 30 mmol/L) 25 Anion Gap (5 - 16) 11 BUN (9 - 20 mg/dL) 25 H Creatinine (0.7 - 1.2 mg/dL) 1.5 H Estimated GFR (>60 ml/min) 52 L Glucose (65 - 99 mg/dL) 74 Calcium (8.4 - 10.2 mg/dL) 7.5 L Phosphorus (2.5 - 4.5 mg/dL) 4.6 H Magnesium (1.6 - 2.3 mg/dL) 1.9 Total Bilirubin (0.2 - 1.3 mg/dL) 0.7 AST (17 - 59 U/L) 448 H ALT (21 - 72 U/L) 705 H Albumin (3.5 - 5.0 g/dL) 2.7 L Hematology CBC w Diff NO MAN DIFF REQ WBC (4.8 - 10.8 /CUMM) 11.9 H RBC (4.70 - 6.10 /CUMM) 5.03 Hgb (14.0 - 18.0 G/DL) 15.0 Hct (42 - 52 %) 45.0 MCV (80.0 - 94.0 FL) 89.4 MCH (27.0 - 31.0 PG) 29.9 RDW (11.5 - 14.5 %) 13.6 Plt Count (130 - 400 /CUMM) 178 MPV (7.4 - 10.4 FL) 8.2 Gran % (42.2 - 75.2 %) 68.2 Lymphocytes % (20.5 - 51.1 %) 20.2 L Monocytes % (1.7 - 9.3 %) 10.3 H Eosinophils % (0 - 5 %) 0.9 Basophils % (0.0 - 2.0 %) 0.4 Absolute Granulocytes (1.4 - 6.5 /CUMM) 8.1 H Absolute Lymphocytes (1.2 - 3.4 /CUMM) 2.4 Absolute Monocytes (0.10 - 0.60 /CUMM) 1.2 H Absolute Eosinophils (0.0 - 0.7 /CUMM) 0.1 Absolute Basophils (0.0 - 0.2 /CUMM) 0 PUBS MCHC (33.0 - 37.0 G/DL) 33.4 Serology Hepatitis A IgM Ab (NONREACTIVE) NONREACTIVE Hep Bs Antigen (NONREACTIVE) NONREACTIVE Hep B Core IgM Ab Conf (NONREACTIVE) NONREACTIVE Hepatitis C Antibody (NONREACTIVE) NONREACTIVE Urines Urine Color (YEL,AMB,STR) STRAW Urine Clarity (CLEAR) CLEAR Urine pH (5.0 - 8.0) 6.0 Ur Specific [place] (1.001 - 1.035) <= 1.005 Urine Protein (NEG,<30 MG/DL) NEG Urine Ketones (NEG) NEG Urine Nitrite (NEG) NEG Urine Bilirubin (NEG) NEG Urine Urobilinogen (0.1 - 1.0 EU/dl) 0.2 Ur Leukocyte Esterase (NEG) NEG Ur Microscopic SEDIMENT EXAMINED Urine RBC (0 - 5 /HPF) 1-3 Urine WBC (0 - 2 /HPF) RARE Urine Hemoglobin (NEG) MOD H Urine Glucose (N MG/DL) NEG 10/20 10/20 10/20 10/20 1805 1700 1513 1500 Chemistry Sodium (137 - 145 mmol/L) 145 Potassium (3.5 - 5.1 mmol/L) 4.9 Chloride (98 - 107 mmol/L) 109 H Carbon Dioxide (22 - 30 mmol/L) 26 Anion Gap (5 - 16) 10 BUN (9 - 20 mg/dL) 22 H Creatinine (0.7 - 1.2 mg/dL) 1.7 H Estimated GFR (>60 ml/min) 45 L Glucose (65 - 99 mg/dL) 99 Lactic Acid Cancelled Calcium (8.4 - 10.2 mg/dL) 7.7 L Phosphorus (2.5 - 4.5 mg/dL) 4.7 H Magnesium (1.6 - 2.3 mg/dL) 2.0 Total Bilirubin (0.2 - 1.3 mg/dL) 0.4 AST (17 - 59 U/L) 840 H ALT (21 - 72 U/L) 960 H Troponin I (<0.11 ng/ml) 3.79 *H Cancelled Albumin (3.5 - 5.0 g/dL) 3.1 L Urines Urine Osmolality Cancelled 10/20 10/20 10/20 1400 1125 1125 Chemistry Sodium (137 - 145 mmol/L) 147 H Potassium (3.5 - 5.1 mmol/L) 6.0 *H Chloride (98 - 107 mmol/L) 107 Carbon Dioxide (22 - 30 mmol/L) 27 Anion Gap (5 - 16) 13 BUN (9 - 20 mg/dL) 18 Creatinine (0.7 - 1.2 mg/dL) 1.7 H Estimated GFR (>60 ml/min) 45 L BUN/Creatinine Ratio (7 - 25 %) 10.6 Lactic Acid (0.7 - 2.1 mmol/L) Cancelled 1.5 Phosphorus (2.5 - 4.5 mg/dL) 6.1 H Magnesium (1.6 - 2.3 mg/dL) 2.4 H Total Bilirubin (0.2 - 1.3 mg/dL) 0.5 Direct Bilirubin (< 0.4 mg/dL) 0.4 AST (17 - 59 U/L) 1501 H ALT (21 - 72 U/L) 1349 H Alkaline Phosphatase (< 127 U/L) 110 Troponin I (<0.11 ng/ml) 7.76 *H Total Protein (6.3 - 8.2 g/dL) 6.9 Albumin (3.5 - 5.0 g/dL) 3.9 Hematology CBC w Diff NO MAN DIFF REQ WBC (4.8 - 10.8 /CUMM) 15.9 H RBC (4.70 - 6.10 /CUMM) 5.68 Hgb (14.0 - 18.0 G/DL) 17.0 Hct (42 - 52 %) 51.3 MCV (80.0 - 94.0 FL) 90.4 MCH (27.0 - 31.0 PG) 29.9 RDW (11.5 - 14.5 %) 13.3 Plt Count (130 - 400 /CUMM) 288 MPV (7.4 - 10.4 FL) 8.0 Gran % (42.2 - 75.2 %) 79.5 H Lymphocytes % (20.5 - 51.1 %) 14.9 L Monocytes % (1.7 - 9.3 %) 4.6 Eosinophils % (0 - 5 %) 0.7 Basophils % (0.0 - 2.0 %) 0.3 Absolute Granulocytes (1.4 - 6.5 /CUMM) 12.6 H Absolute Lymphocytes (1.2 - 3.4 /CUMM) 2.4 Absolute Monocytes (0.10 - 0.60 /CUMM) 0.7 H Absolute Eosinophils (0.0 - 0.7 /CUMM) 0.1 Absolute Basophils (0.0 - 0.2 /CUMM) 0 PUBS MCHC (33.0 - 37.0 G/DL) 33.1 10/20 10/20 10/20 1024 0900 0825 Blood Gas pH (7.35 - 7.45 PH) 7.28 *L 7.25 *L pCO2 (35 - 45 TORR) 43 46 H pO2 (80 - 100 TORR) 118 H 99 HCO3 (21 - 28 MEQ/L) 18 L 20 L ABG O2 Sat (Measured) (>96.0 %) 97.0 95.0 L Carboxyhemoglobin (1.5 - 5.0 %) 0.6 L 1.2 L O2 Concentration % 50% 60 Temperature (97.0 - 100.0 FARH) 98.0 Respiration Rate (BPM) 22 22 O2 Delivery Method ESPRIT VENT Vent Mode VC-AC AC Expiratory Pressure (CMH2O/P) 5 5 Tidal Volume (CC) 550 550 Chemistry Troponin I Cancelled Miscellaneous Phlebotomy Draw Site RIGHT RADIAL LEFT RADIAL 10/20 10/20 0425 0335 Blood Gas pH (7.35 - 7.45 PH) 7.22 *L pCO2 (35 - 45 TORR) 46 H pO2 (80 - 100 TORR) 260 H HCO3 (21 - 28 MEQ/L) 19 L ABG O2 Sat (Measured) (>96.0 %) 96.0 P-50 (Temp Corrected) Y Carboxyhemoglobin (1.5 - 5.0 %) 2.8 O2 Concentration % 100% Temperature (97.0 - 100.0 FARH) 94.5 L Respiration Rate (BPM) 22 O2 Delivery Method ESPRIT Vent Mode AC Expiratory Pressure (CMH2O/P) 5 Tidal Volume (CC) 550 Chemistry Lactic Acid (0.7 - 2.1 mmol/L) 11.3 H Miscellaneous Phlebotomy Draw Site LEFT RADIAL 10/20 10/20 0335 0330 Chemistry Sodium (137 - 145 mmol/L) 139 Potassium (3.5 - 5.1 mmol/L) 4.0 Chloride (98 - 107 mmol/L) 95 L Carbon Dioxide (22 - 30 mmol/L) 19 L Anion Gap (5 - 16) 24 H BUN (9 - 20 mg/dL) 11 Creatinine (0.7 - 1.2 mg/dL) 1.5 H Estimated GFR (>60 ml/min) 52 L BUN/Creatinine Ratio (7 - 25 %) 7.3 Glucose (65 - 99 mg/dL) 357 H Serum Osmolality (285 - 295 MOSM/KG) 317 H Calcium (8.4 - 10.2 mg/dL) 8.4 Magnesium (1.6 - 2.3 mg/dL) 3.7 H Total Bilirubin (0.2 - 1.3 mg/dL) 0.3 Direct Bilirubin (< 0.4 mg/dL) 0.3 AST (17 - 59 U/L) 580 H ALT (21 - 72 U/L) 618 H Alkaline Phosphatase (< 127 U/L) 88 Ammonia (9 - 30 umol/L) 56 H Troponin I (<0.11 ng/ml) < 0.01 Total Protein (6.3 - 8.2 g/dL) 5.1 L Albumin (3.5 - 5.0 g/dL) 2.9 L Amylase (30 - 110 U/L) 87 Lipase (23 - 300 U/L) 257 Coagulation PT (9.4 - 12.5 SEC) 10.8 INR (0.90 - 1.17) 1.03 APTT (25 - 37 SEC) 40 H Hematology CBC w Diff MAN DIFF ORDERED WBC (4.8 - 10.8 /CUMM) 6.9 RBC (4.70 - 6.10 /CUMM) 4.18 L Hgb (14.0 - 18.0 G/DL) 12.6 L Hct (42 - 52 %) 37.9 L MCV (80.0 - 94.0 FL) 90.7 MCH (27.0 - 31.0 PG) 30.1 RDW (11.5 - 14.5 %) 13.0 Plt Count (130 - 400 /CUMM) 237 MPV (7.4 - 10.4 FL) 8.4 Gran % (42.2 - 75.2 %) 24.7 L Lymphocytes % (20.5 - 51.1 %) 70.0 H Monocytes % (1.7 - 9.3 %) 3.0 Eosinophils % (0 - 5 %) 1.3 Basophils % (0.0 - 2.0 %) 1.0 Absolute Granulocytes (1.4 - 6.5 /CUMM) 1.7 Segmented Neutrophils (42.2 - 75.2 %) 18 L Band Neutrophils (0.0 - 5.0 %) 4 Absolute Lymphocytes (1.2 - 3.4 /CUMM) 4.8 H Lymphocytes (20.5 - 51.1 %) 76 H Monocytes (1.7 - 9.3 %) 2 Absolute Monocytes (0.10 - 0.60 /CUMM) 0.2 Absolute Eosinophils (0.0 - 0.7 /CUMM) 0.1 Absolute Basophils (0.0 - 0.2 /CUMM) 0.1 Platelet Estimate (ADEQUATE) ADEQUATE Polychromasia 1+ Ovalocytes FEW PUBS MCHC (33.0 - 37.0 G/DL) 33.2 Other Body Source Fld Total RBCs Counted (%) 100 Toxicology Serum Alcohol (<10 MG/DL) < 10.0 Acetone Level (NEGATIVE) NEGATIVE Urines Urinalysis LIGHT H Urine Color (YEL,AMB,STR) YEL Urine Clarity (CLEAR) HAZY H Urine pH (5.0 - 8.0) 6.0 Ur Specific [place] (1.001 - 1.035) >= 1.030 Urine Protein (NEG,<30 MG/DL) 30 H Urine Ketones (NEG) NEG Urine Nitrite (NEG) NEG Urine Bilirubin (NEG) NEG Urine Urobilinogen (0.1 - 1.0 EU/dl) 0.2 Ur Leukocyte Esterase (NEG) NEG Ur Microscopic SEDIMENT EXAMINED Urine RBC (0 - 5 /HPF) 1-3 Urine WBC (0 - 2 /HPF) RARE Ur Epithelial Cells (NONE,FEW) RARE Urine Mucus (FEW,NONE) MOD H Urine Hemoglobin (NEG) SMALL H Urine Glucose (N MG/DL) NEG 10/20 0330 Toxicology Urine Opiates Screen (>2000 NG/ML) 1378.00 Methadone Screen (>300 NG/ML) 41 Barbiturate Screen (>200 NG/ML) < 60 Ur Phencyclidine Scrn (>25 NG/ML) < 6.00 Amphetamines Screen (>1000 NG/ML) < 100 U Benzodiazepines Scrn (>200 NG/ML) > 800 H Urine Cocaine Screen (>300 NG/ML) > 1000 H Urine Cannabis Screen (>50 NG/ML) < 5.00 Urines Urine Osmolality (300 - 1000 MOSM/KG) 765 Ur Random Creatinine (mg/dL) 133.0 Ur Random Sodium (30 - 90 mmol/L) 246 H Ur Random Potassium (mmol/L) 26.5 Fraction Sodium Excret (<1% %) 2.0 H
--- NOTE | 2016-10-21 11:50 | ECHOCARDIOGRAM REPORT ---
ROBERTO BARBER Age: 41 : 1975 Gender: M Exam Date: 10/20/2016 14:33 Exam Location: [facility] Ht (in): Wt (lb): 210 BSA: BP: 107 / 76 Ordering Physician: SOFIA STREET MD Referring Physician: Valerie Cherry MD Technologist: Sayda Pfeiffer [facility] Room Number: 109 Indications: HEART DONOR EVALUATION Rhythm: Sinus Technical Quality: Fair FINDINGS Left Ventricle Normal size left ventricle. Left ventricular wall thickness increased. Mildly reduced global left ventricular systolic function. Mildly abnormal left ventricular ejection fraction estimated at 45- 50%. Right Ventricle Right ventricle not well visualized, grossly normal. Right Atrium Right atrium not well visualized, grossly normal. Left Atrium Normal left atrial size. Mitral Valve Mitral valve thickened. Trace mitral regurgitation. Aortic Valve Structurally normal trileaflet aortic valve. No aortic stenosis. No aortic regurgitation. Tricuspid Valve Tricuspid valve not well visualized, grossly normal. Trace tricuspid regurgitation. Pulmonic Valve Structurally normal pulmonic valve. Trace pulmonic regurgitation. Pericardium No pericardial effusion. Great Vessels Aortic root and proximal ascending aorta not well visualized, grossly normal. CONCLUSIONS 1. The aortic valve is trileaflet and normal 2. Mild thickening of the mitral leaflets is present with minimal mitral insufficiency. 3. There is no significant pericardial fluid present. 4. The left ventricular chamber size is normal with mild concentric hypertrophy present. THere is abnormal septal motion present. Very mild global hypokinesia is present with an ejection fraction of approximately 45-50%. A followup examination might be useful to reassess LV systolic funtion when the patient's heart rate is slower. 5. The right heart structures are grossly normal but were not optimally assessed. Minimal tricuspid and pulmonic insufficiency are present. The RV systolic pressure could not be assessed on this examination. 6. This was a technically difficult examination and the apical images were technically suboptimal. Valerie Cherry M.D. (Electronically Signed) Final Date: 21 October 2016 11:50 MEASUREMENTS (Male / Female) Normal Values 2D ECHO LV Diastolic Diameter PLAX 4.3 cm 4.2 - 5.9 / 3.9 - 5.3 cm LV Systolic Diameter PLAX 2.7 cm 2.1 - 4.0 cm LV Fractional Shortening PLAX 37.2 % 25 - 46 % LV Ejection Fraction 2D Teich 67.5 % IVS Diastolic Thickness 1.4 cm LVPW Diastolic Thickness 1.3 cm LV Relative Wall Thickness 0.6 RV Internal Dim ED PLAX 2.4 cm 1.9 - 3.8 cm LVOT Diameter 2.2 cm Aortic Root Diameter 3.0 cm LA Systolic Diameter LX 2.1 cm 3.0 - 4.0 / 2.7 - 3.8 cm LA Volume 16.0 cm 18 - 58 / 22 - 52 cm Ascending Aorta Diameter 3.0 cm DOPPLER AV Peak Velocity 107.0 cm/s AV Peak Gradient 4.6 mmHg AV Mean Velocity 72.7 cm/s AV Mean Gradient 2.0 mmHg AV Velocity Time Integral 10.2 cm LVOT Peak Velocity 72.6 cm/s LVOT Peak Gradient 2.1 mmHg LVOT Mean Velocity 50.1 cm/s LVOT Mean Gradient 1.0 mmHg LVOT Velocity Time Integral 6.7 cm LVOT Stroke Volume 25.3 cm AV Area Cont Eq vti 2.5 cm AV Area Cont Eq pk 2.6 cm MV Peak Velocity 54.9 cm/s MV Peak Gradient 1.2 mmHg MV Mean Velocity 38.0 cm/s MV Mean Gradient 1.0 mmHg Mitral E Point Velocity 31.5 cm/s Mitral A Point Velocity 36.0 cm/s Mitral E to A Ratio 0.9 MV PHT Velocity 60.5 cm/s MV Deceleration [place] 916.0 cm/s MV Pressure Half Time 19.8 ms MV Area PHT 11.1 cm MV Deceleration Time 177.0 ms TR Peak Velocity 228.0 cm/s TR Peak Gradient 20.8 mmHg Right Atrial Pressure 5.0 mmHg Pulmonary Artery Systolic Pressu 25.8 mmHg Right Ventricular Systolic Press 25.8 mmHg PV Peak Velocity 125.0 cm/s PV Peak Gradient 6.3 mmHg PV Mean Velocity 70.7 cm/s PV Mean Gradient 3.0 mmHg PV Velocity Time Integral 15.5 cm LV E' Lateral Velocity 13.6 cm/s Mitral E to LV E' Lateral Ratio 2.3 LV E' Septal Velocity 8.3 cm/s Mitral E to LV E' Septal Ratio 3.8
--- NOTE | 2016-10-21 11:55 | NUR ---
EEG COMPLETED @ BEDSIDE. DR BAZAN MEETING WITH OLDEST DAUGHTER ERIC & MOTHER-STEFANI REGARDING PLAN & GOALS OF CARE. MULTIPLE FAMILY MEMBERS AT BEDSIDE. PATIENT REMAINS UNRESPONSIVE TO PAINFUL STIMULI, NO SPONTANEOUS MOVEMENTS. PUPILS ARE FIXED & DILATED, WITH SCLERAL EDEMA. DR SALDAÑA CHECKED CORNEAL REFLEX BILATERALLY & THEY WERE ABSENT. RR ON VENTILATOR SET @ 22, WITH NO SPONTANEOUS BREATHS/OVER BREATHING NOTED. NO GAG REFLEX WITH ORAL SUCTIONING. D5W & NS IVF INFUSING PER EMAR & ICU FLOW SHEET. LEVOPHED INFUSING VIA R GROIN TLC PER EMAR & REFER TO ICU FLOW SHEET FOR TITRATIONS. LABS ORDERED Q4HRS. WILL CONTINUE TO MONITOR.
[2016-10-21 12:00] VITALS: BP 98/70
--- NOTE | 2016-10-21 12:06 | RADIOLOGY REPORT ---
EXAMINATION: XR PORTABLE CHEST CLINICAL INFORMATION: Hypoxic brain injury. COMPARISON: X-ray of the chest performed 10/20/2016. TECHNIQUE: Portable view of the chest was obtained. FINDINGS: There is elevated right hemidiaphragm. Both lungs are expanded with minimal atelectatic changes left lung base. There is a right upper lobe infiltrate which is stable. Tip of endotracheal tube there is 5.3 cm above the rachel. Nasogastric tip is at the GE junction and end hole is in the lower esophagus. NG tube needs to be advanced at least by 8 to10 cm. The heart size and pulmonary vascularity is within normal limits. No gross bony abnormality. IMPRESSION: Stable right upper lobe infiltrate and left lower lobe atelectasis, less likely infiltrate. By Advanced nasogastric tube by 8 to 10 cm. Endotracheal tube is in good position.
--- NOTE | 2016-10-21 13:30 | NUR ---
NEXT OF KIN CONTACT INFORMATION- OL[facility] [id number] #[phone] & [id number]-[phone].
--- NOTE | 2016-10-21 13:38 | PN- Cardiology ---
Subjective Subjective: Current status noted. No significant change in cardiac status. Objective Vital Signs and I&Os Vital Signs Date Time Temp Pulse Resp B/P Pulse O2 O2 Flow FiO2 Ox Delivery Rate 10/21 1159 40 10/21 1015 120 80/00 /06 0834 40 10/21 0616 40 10/21 0403 40 10/21 0400 95 Ventilator 50% 10/21 0146 40 / 0000 101.9 130 22 98/60 95 Ventilator 50% 10/21 0000 95 Ventilator 50% 10/20 2353 102.3 10/20 2242 40 10/20 2237 103.1 10/20 2000 40 10/20 2000 96 Ventilator 50% 10/20 1625 40 10/20 1600 99.5 134 22 90/60 / 1600 95 Ventilator 50% 10/20 1600 99.5 134 22 90/60 95 Ventilator 50% / 1410 40 10/20 1400 99.9 136 22 162/98 Intake & Output 10/21 1600 10/21 0800 10/21 0000 10/20 1600 10/20 0800 10/20 0000 Intake Total 688 966 5319 Output Total 2100 450 1695 3650 Balance -1354 481 69 -3650 Intake, IV 678 094 9043 Intake, Oral 0 0 Number 0 0 Bowel Movements Output, 0 0 70 Gastric Drainage Output, Urine 2100 450 1625 3650 Patient 225 lb 210 lb Weight Current Medications: Current Medications Sig/Rose Start time Last Medication Dose Route Stop Time Status Admin Acetaminophen 1,000 MG ONCE ONE 10/20 2214 DC 10/20 N/A 1 UNIT IV 10/20 2229 2237 Artificial Tears 2 GTT TID 10/20 1000 AC 10/21 OPH 0817 Calcium Gluconate 1 GM ONCE ONE 10/20 1415 DC 10/20 Sodium Chloride 100 ML IV 10/20 1514 1515 Ceftazidime 1,000 MG IQ8 10/21 1600 AC IV Desmopressin Acetate 2 MCG ONE ONE 10/21 1030 DC 10/21 IV 10/21 1031 1123 Desmopressin Acetate 2 MCG ONCE ONE 10/21 0700 DC 10/21 SC 10/21 0701 0740 Dextrose 25 GM ONCE ONE 10/20 1415 DC 10/20 IV 10/20 1416 1514 Dextrose/Water 1,000 ML Q10H 10/21 07 AC 10/21 IV 0702 Dopamine HCl 400 MG ONCE ONE 10/20 0400 DC 10/20 Dextrose/Water 500 ML IV 11/09 2359 0359 Insulin Human Regular 10 UNITS ONCE ONE 10/20 1415 DC 10/20 IV 10/20 1416 1514 Naloxone HCl 20 MG ONCE ONE 10/20 0400 DC 10/20 Sodium Chloride 500 ML IV 11/09 2359 0402 Norepinephrine 4 MG Q24H 10/21 1015 DC 10/21 Sodium Chloride 250 ML IV 1015 Norepinephrine 4 MG Q7H 10/20 1030 DC 10/20 Dextrose/Water 250 ML IV 1105 Pantoprazole Sodium 40 MG BID 10/20 1013 AC 10/21 IV 0817 Sodium Chloride 1,000 ML Q6H 10/21 1245 AC IV Sodium Chloride 1,000 ML BOLUS ONE 10/21 1030 DC 10/21 IV 10/21 1129 1010 Sodium Chloride 1,000 ML Q10H 10/20 0630 DC 10/21 IV 0343 Sodium Polystyrene 120 ML ONCE ONE 10/20 1330 CAN Sulfonate PO 10/20 1331 Vancomycin HCl 1,000 MG Q12H 10/21 1300 AC Sodium Chloride 250 ML IV Vasopressin 40 UNIT Q16H 10/20 1045 DC 10/20 Sodium Chloride 100 ML IV 1049 Results Last 48 Hrs of Labs/Mics: Laboratory Tests 10/21/16 1225: PT Pending, INR Pending, Urine Osmolality Pending 10/21/16 0945: Anion Gap 11, Estimated GFR 42 L, BUN/Creatinine Ratio 14.4, CBC w Diff NO MAN DIFF REQ, RBC 5.22, MCV 90.5, MCH 30.0, RDW 13.8, MPV 8.6, Gran % 67.5, Lymphocytes % 21.7, Monocytes % 8.6, Eosinophils % 1.8, Basophils % 0.4, Absolute Granulocytes 7.5 H, Absolute Lymphocytes 2.4, Absolute Monocytes 1.0 H, Absolute Eosinophils 0.2, Absolute Basophils 0, PUBS MCHC 33.2 10/21/16 0540: pH 7.39, pCO2 39, pO2 78 L, HCO3 23, ABG O2 Sat (Measured) 94.0 L, P-50 (Temp Corrected) Y, Carboxyhemoglobin 0.9 L, O2 Concentration % 40%, Temperature 99.8 , Respiration Rate 22, O2 Delivery Method ESPRIT, Vent Mode AC, Expiratory Pressure 5, Tidal Volume 550, Phlebotomy Draw Site RIGHT BRACHIAL 10/21/16 0430: Urine Color STRAW, Urine Clarity CLEAR, Urine pH 6.0, Ur Specific [place] <= 1.005, Urine Protein NEG, Urine Ketones NEG, Urine Nitrite NEG, Urine Bilirubin NEG, Urine Urobilinogen 0.2, Ur Leukocyte Esterase NEG, Ur Microscopic SEDIMENT EXAMINED, Urine RBC 1-3, Urine WBC RARE, Urine Hemoglobin MOD H, Urine Glucose NEG 10/21/16 0420: Anion Gap 11, Estimated GFR 52 L, Glucose 74, Calcium 7.5 L, Phosphorus 4.6 H , Magnesium 1.9, Total Bilirubin 0.7, AST 448 H, ALT 705 H, Albumin 2.7 L, CBC w Diff NO MAN DIFF REQ, RBC 5.03, MCV 89.4, MCH 29.9, RDW 13.6, MPV 8.2, Gran % 68.2, Lymphocytes % 20.2 L, Monocytes % 10.3 H, Eosinophils % 0.9, Basophils % 0.4, Absolute Granulocytes 8.1 H, Absolute Lymphocytes 2.4, Absolute Monocytes 1.2 H, Absolute Eosinophils 0.1, Absolute Basophils 0, PUBS MCHC 33.4, Hepatitis A IgM Ab NONREACTIVE, Hep Bs Antigen NONREACTIVE, Hep B Core IgM Ab Conf NONREACTIVE, Hepatitis C Antibody NONREACTIVE 10/20/16 1805: Anion Gap 10, Estimated GFR 45 L, Glucose 99, Calcium 7.7 L, Phosphorus 4.7 H , Magnesium 2.0, Total Bilirubin 0.4, AST 840 H, ALT 960 H, Troponin I 3.79 *H , Albumin 3.1 L 10/20/16 1700: Lactic Acid Cancelled 10/20/16 1513: Urine Osmolality Cancelled 10/20/16 1500: Troponin I Cancelled 10/20/16 1400: Lactic Acid Cancelled 10/20/16 1125: Lactic Acid 1.5 10/20/16 1125: Anion Gap 13, Estimated GFR 45 L, BUN/Creatinine Ratio 10.6, Phosphorus 6.1 H, Magnesium 2.4 H, Total Bilirubin 0.5, Direct Bilirubin 0.4, AST 1501 H, ALT 1349 H, Alkaline Phosphatase 110, Troponin I 7.76 *H, Total Protein 6.9, Albumin 3.9, CBC w Diff NO MAN DIFF REQ, RBC 5.68, MCV 90.4, MCH 29.9, RDW 13.3, MPV 8.0, Gran % 79.5 H, Lymphocytes % 14.9 L, Monocytes % 4.6, Eosinophils % 0.7, Basophils % 0.3, Absolute Granulocytes 12.6 H, Absolute Lymphocytes 2.4, Absolute Monocytes 0.7 H, Absolute Eosinophils 0.1, Absolute Basophils 0, PUBS MCHC 33.1 10/20/16 1024: pH 7.28 *L, pCO2 43, pO2 118 H, HCO3 18 L, ABG O2 Sat (Measured) 97.0, Carboxyhemoglobin 0.6 L, O2 Concentration % 50%, Temperature 98.0, Respiration Rate 22, O2 Delivery Method ESPRIT, Vent Mode VC-AC, Expiratory Pressure 5, Tidal Volume 550, Phlebotomy Draw Site RIGHT RADIAL 10/20/16 0900: Troponin I Cancelled 10/20/16 0825: pH 7.25 *L, pCO2 46 H, pO2 99, HCO3 20 L, ABG O2 Sat (Measured) 95.0 L, Carboxyhemoglobin 1.2 L, O2 Concentration % 60, Respiration Rate 22, O2 Delivery Method VENT, Vent Mode AC, Expiratory Pressure 5, Tidal Volume 550, Phlebotomy Draw Site LEFT RADIAL 10/20/16 0425: pH 7.22 *L, pCO2 46 H, pO2 260 H, HCO3 19 L, ABG O2 Sat (Measured) 96.0, P-50 (Temp Corrected) Y, Carboxyhemoglobin 2.8, O2 Concentration % 100%, Temperature 94.5 L, Respiration Rate 22, O2 Delivery Method ESPRIT, Vent Mode AC, Expiratory Pressure 5, Tidal Volume 550, Phlebotomy Draw Site LEFT RADIAL 10/20/16 0335: Lactic Acid 11.3 H 10/20/16 0335: Anion Gap 24 H, Estimated GFR 52 L, BUN/Creatinine Ratio 7.3, Glucose 357 H, Serum Osmolality 317 H, Calcium 8.4, Magnesium 3.7 H, Total Bilirubin 0.3, Direct Bilirubin 0.3, AST 580 H, ALT 618 H, Alkaline Phosphatase 88, Ammonia 56 H, Troponin I < 0.01, Total Protein 5.1 L, Albumin 2.9 L, Amylase 87, Lipase 257, PT 10.8, INR 1.03, APTT 40 H, CBC w Diff MAN DIFF ORDERED, RBC 4.18 L, MCV 90.7, MCH 30.1, RDW 13.0, MPV 8.4, Gran % 24.7 L, Lymphocytes % 70.0 H , Monocytes % 3.0, Eosinophils % 1.3, Basophils % 1.0, Absolute Granulocytes 1.7 , Segmented Neutrophils 18 L, Band Neutrophils 4, Absolute Lymphocytes 4.8 H, Lymphocytes 76 H, Monocytes 2, Absolute Monocytes 0.2, Absolute Eosinophils 0.1 , Absolute Basophils 0.1, Platelet Estimate ADEQUATE, Polychromasia 1+, Ovalocytes FEW, PUBS MCHC 33.2, Fld Total RBCs Counted 100, Serum Alcohol < 10.0 , Acetone Level NEGATIVE 10/20/16 0330: Urinalysis LIGHT H, Urine Color YEL, Urine Clarity HAZY H, Urine pH 6.0, Ur Specific [place] >= 1.030, Urine Protein 30 H, Urine Ketones NEG, Urine Nitrite NEG, Urine Bilirubin NEG, Urine Urobilinogen 0.2, Ur Leukocyte Esterase NEG, Ur Microscopic SEDIMENT EXAMINED, Urine RBC 1-3, Urine WBC RARE, Ur Epithelial Cells RARE, Urine Mucus MOD H, Urine Hemoglobin SMALL H, Urine Glucose NEG 10/20/16 0330: Urine Opiates Screen 1378.00, Methadone Screen 41, Barbiturate Screen < 60, Ur Phencyclidine Scrn < 6.00, Amphetamines Screen < 100, U Benzodiazepines Scrn > 800 H, Urine Cocaine Screen > 1000 H, Urine Cannabis Screen < 5.00, Urine Osmolality 765, Ur Random Creatinine 133.0, Ur Random Sodium 246 H, Ur Random Potassium 26.5, Fraction Sodium Excret 2.0 H Microbiology 10/20 814 UPPER RESP: Surveillance Culture - COMP 10/20 814 GI: Surveillance Culture - COMP Assessment/Plan Assessment/Plan Assessment: 1. Status post cardiac arrest, likely related to overdose 2. Bilateral pulmonary infiltrates 3. Acute organ dysfunction likely re related to hypotension and hypoperfusion 4. Acute renal insufficiency 5. Shock liver 6. GI bleed 7. Probable anoxic encephalopathy. Recommendations: -Continue supportive care as presently pending family meeting, etc. -Echocardiogram reviewed. Left ventricular function slightly abnormal with ejection fraction of 45-50% and abnormal septal motion. -Continue to monitor on telemetry due to resting tachycardia. Continue telemetry? Yes
[2016-10-21 13:48] LABS: PT 14.2 SEC (9.4-12.5)
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
--- NOTE | 2016-10-21 15:31 | NUR ---
Referral received from Dr. Manrique this afternoon. Reason for referral was "patient with anoxic brain injury s/p cardiac arrest, heroin and social issues". Case discussed with Dr. Manrique. Patient with extended family; currently patients mother and adult daughter are making the medical decisons regarding direction of care and are in agreement. Dr. Manrique reports that the patient also has a "common law" , but at this time, she is not a medical decison maker. Will be available to provide additonal support as needed. Follow.
[2016-10-21 16:00] VITALS: BP 100/60
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
--- NOTE | 2016-10-21 22:40 | NUR ---
TEMP 95.2 MD SHEETS MADE AWARE, WARMING BLANKET PLACED ON AT THIS TIME. WILL CONT TO MONITOR.
[2016-10-22] VITALS: BP 112/56
[2016-10-22 06:29] LABS: ABSOLUTE BASOPHIL COUNT 0 /CUMM (0.0-0.2); ABSOLUTE EOSINOPHIL COUNT 0.2 /CUMM (0.0-0.7); ABSOLUTE GRANULOCYTE CT 9.9 /CUMM (1.4-6.5); ABSOLUTE LYMPH COUNT 1.3 /CUMM (1.2-3.4); ABSOLUTE MONOCYTE COUNT 0.9 /CUMM (0.10-0.60); BASOPHIL % 0 % (0.0-2.0); EOSINOPHIL % 1.7 % (0-5); GRANULOCYTE % 80.3 % (42.2-75.2); MEAN CORPUSCULAR HGB 30.1 PG (27.0-31.0); MEAN CORPUSCULAR HGB CONC 33.5 G/DL (33.0-37.0); MEAN CORPUSCULAR VOLUME 89.8 FL (80.0-94.0); MEAN PLATELET VOLUME 8.8 FL (7.4-10.4); PLATELET COUNT 140 /CUMM (130-400); RBC DISTRIBUTION WIDTH 13.8 % (11.5-14.5); RED BLOOD CELL CT 4.08 /CUMM (4.70-6.10); WHITE BLOOD CELL COUNT 12.3 /CUMM (4.8-10.8)
[2016-10-22 06:37] LABS: HEMATOCRIT 36.7 % (42-52)
--- NOTE | 2016-10-22 07:39 | RADIOLOGY REPORT ---
EXAMINATION: XR PORTABLE CHEST CLINICAL INFORMATION: Hypoxic brain injury COMPARISON: Chest x-ray from 10/21/2016 TECHNIQUE: AP portable upright chest x-ray FINDINGS: There is an endotracheal tube positioned approximately 4 cm above the rachel. There is an enteric tube extending below the diaphragm. There is slight increase in atelectasis at the left lung base since the previous exam. There is no other change There is no pleural effusion or pneumothorax appreciated.. IMPRESSION: Increase in subsegmental atelectasis in the retrocardiac left lower lobe. No other change. Endotracheal tube and enteric tube in place.
[2016-10-22 08:00] VITALS: BP 140/48
--- NOTE | 2016-10-22 10:00 | NUR ---
RESUMED PT CARE AT 0730\ PT REMAINS IN A COMATOSED STATE. NO REFLEXES. PUPILS 7MM AND FIXED W SCLERAL EDEMA. PT DOES NOT BREATH OVER THE VENTILATOR. SETTINGS AC 25 550 40 5 98-100%. BP ST ON THE MONITOR, NO ECTOPY. 100-120'S. BP 140/48 MANUALLY. NGT TO R NARES REMAINS INSITU W SMALL AMT OF BROWN OUTPUT. DE DIOS INSITU W CLR YELLOW URINE, BEING REPLETED HRLY W NS OF SAME AMT. D5 IS AT 200ML/HR. BLOOD SUGARS REMAIN STABLE. PT RECVD CEFTAZ, PROTONIX AND DDAVP.
--- NOTE | 2016-10-22 11:16 | PN- CRCU ---
Subjective HPI/Critical Care Issues: pt seen and examined unresponsive mechanical ventilation dnr/dni, no pressors no responses negative calorics Objective Current Medications: Current Medications Sig/Rose Start time Last Medication Dose Route Stop Time Status Admin Artificial Tears 2 GTT TID 10/20 1000 AC 10/22 OPH 0840 Ceftazidime 1,000 MG IQ8 10/21 1600 AC 10/22 IV 0840 Desmopressin Acetate 2 MCG BID 10/21 2200 AC 10/22 IV 0843 Dextrose/Water 1,000 ML Q6H 10/21 2000 AC 10/22 IV 0827 Dextrose/Water 1,000 ML Q10H 10/21 0700 DC 10/21 IV 1545 Norepinephrine 4 MG Q24H 10/21 1015 DC 10/21 Sodium Chloride 250 ML IV 1015 Pantoprazole Sodium 40 MG BID 10/20 1013 AC 10/22 IV 0840 Potassium Chloride 20 MEQ ONCE ONE 10/22 0315 DC 10/22 IV 10/22 0316 0454 Potassium Chloride 20 MEQ Q1H 10/21 2330 DC 10/22 IV 10/22 0031 0024 Sodium Chloride 1,000 ML CONTINOUS INFUSION 10/22 1845 AC 10/22 IV 0800 Sodium Chloride 1,000 ML Q6H 10/21 1245 DC 10/21 IV 1640 Sodium Chloride 1,000 ML BOLUS ONE 10/21 1030 DC 10/21 IV 10/21 1129 1010 Vancomycin HCl 1,000 MG Q12H 10/21 1300 AC 10/22 Sodium Chloride 250 ML IV 0259 Vital Signs & I&O Last 24 Hrs of Vitals and I&O: Vital Signs Date Time Temp Pulse Resp B/P Pulse O2 O2 Flow FiO2 Ox Delivery Rate 10/22 0843 40 10/22 0800 100 Ventilator 40% 10/22 0800 95.9 109 26 140/48 100 Ventilator 40% 10/22 0606 40 10/22 0400 98 Ventilator 40% 10/22 0248 40 10/22 0044 40 10/22 0000 97.1 106 26 112/56 97 Ventilator 40% 10/22 0000 97 Ventilator 40% 10/21 2252 40 10/21 2000 40 10/21 2000 96 Ventilator 40% 10/21 1650 40 10/21 1600 98.3 118 26 100/60 95 Ventilator 40% 10/21 1600 96 Ventilator 40% 10/21 1431 40 01/06 1200 Ventilator 40% 10/21 1200 97.3 110 22 98/70 98 Ventilator 40% 10/21 1159 40 Intake & Output 10/22 1600 10/22 0800 10/22 0000 Intake Total 3125 5406 Output Total 1040 4770 Balance 2085 636 Intake, IV 3125 5366 Intake, Oral 0 0 Intake, Tube 40 Irrigant Number 0 1 Bowel Movements Output, 200 150 Gastric Drainage Output, Urine 840 4620 Patient 225 lb Weight Exam Other Physical Findings: gen unresponsive heent pupils fixed and dilated cvs s1, s2 tachycardic abd soft, minimal bs+ lungs transmitted ext no edema neuro - negative coloric examination without eye movement, pupils fixed and dilated, no gag reflex, no spontaneous breath Results Last 24 Hrs of Lab Results: Laboratory Tests 10/22/16 0600: Anion Gap 12, Estimated GFR > 60, Glucose 152 H, Calcium 8.2 L, Phosphorus 1.3 L, Magnesium 1.8, Total Bilirubin 0.7, AST 199 H, ALT 418 H, Albumin 2.2 L, CBC w Diff NO MAN DIFF REQ, RBC 4.08 L, MCV 89.8, MCH 30.1, RDW 13.8, MPV 8.8, Gran % 80.3 H, Lymphocytes % 10.4 L, Monocytes % 7.6, Eosinophils % 1.7, Basophils % 0 L, Absolute Granulocytes 9.9 H, Absolute Lymphocytes 1.3, Absolute Monocytes 0.9 H, Absolute Eosinophils 0.2, Absolute Basophils 0, PUBS MCHC 33.5 10/22/16 0545: pH 7.43, pCO2 29 L, pO2 84, HCO3 19 L, ABG O2 Sat (Measured) 96.0, P-50 (Temp Corrected) N, Carboxyhemoglobin 0.3 L, O2 Concentration % .40, Respiration Rate 26, O2 Delivery Method VENT, Vent Mode A/C, Expiratory Pressure 5, Tidal Volume 550, Phlebotomy Draw Site RIGHT RADIAL 10/22/16 0520: Urine Osmolality 652 10/22/16 0205: Anion Gap 12, Estimated GFR > 60, BUN/Creatinine Ratio 10.8 10/21/16 2230: Urine Osmolality 613 10/21/16 2200: Anion Gap 12, Estimated GFR > 60, BUN/Creatinine Ratio 11.5, Magnesium 1.9 10/21/16 1753: Anion Gap 9, Estimated GFR 52 L, BUN/Creatinine Ratio 12.0, Glucose 155 H 10/21/16 1655: Urine Opiates Screen 288.00, Methadone Screen < 40, Barbiturate Screen < 60, Ur Phencyclidine Scrn < 6.00, Amphetamines Screen < 100, U Benzodiazepines Scrn 289 H, Urine Cocaine Screen > 1000 H, Urine Cannabis Screen < 5.00 10/21/16 1440: Anion Gap 11, Estimated GFR 52 L, BUN/Creatinine Ratio 14.0 10/21/16 1225: PT 14.2 H, INR 1.36 H, Urine Osmolality 505 Impression/Plan Impression/Plan Impression/Plan: Impression 41 year old man * 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
[2016-10-22 16:00] VITALS: BP 140/60
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
[2016-10-23] VITALS: BP 134/74
[2016-10-23 06:10] LABS: ABSOLUTE BASOPHIL COUNT 0 /CUMM (0.0-0.2); ABSOLUTE EOSINOPHIL COUNT 0.4 /CUMM (0.0-0.7); ABSOLUTE GRANULOCYTE CT 7.1 /CUMM (1.4-6.5); ABSOLUTE LYMPH COUNT 1.4 /CUMM (1.2-3.4); ABSOLUTE MONOCYTE COUNT 0.6 /CUMM (0.10-0.60); HEMATOCRIT 34.8 % (42-52); MEAN CORPUSCULAR HGB 30.3 PG (27.0-31.0); MEAN CORPUSCULAR HGB CONC 34.1 G/DL (33.0-37.0); MEAN CORPUSCULAR VOLUME 88.7 FL (80.0-94.0); MEAN PLATELET VOLUME 8.4 FL (7.4-10.4); PLATELET COUNT 108 /CUMM (130-400); RBC DISTRIBUTION WIDTH 13.6 % (11.5-14.5); RED BLOOD CELL CT 3.92 /CUMM (4.70-6.10); WHITE BLOOD CELL COUNT 9.4 /CUMM (4.8-10.8)
[2016-10-23 06:27] LABS: BASOPHIL % 0.3 % (0.0-2.0); EOSINOPHIL % 3.8 % (0-5); GRANULOCYTE % 74.8 % (42.2-75.2)
[2016-10-23 08:00] VITALS: BP 146/100
--- NOTE | 2016-10-23 09:26 | PN- CRCU ---
Subjective HPI/Critical Care Issues: Patient seen and examined this morning. He is on mechanical ventilation and unresponsive. As yesterday he continues to have no gag reflex or pupillary reflexes. He is not having any spontaneous breaths. Objective Current Medications: Current Medications Sig/Rose Start time Last Medication Dose Route Stop Time Status Admin Artificial Tears 2 GTT TID 10/20 1000 AC 10/23 OPH 0912 Ceftazidime 1,000 MG IQ8 10/21 1600 AC 10/23 IV 0811 Desmopressin Acetate 2 MCG ONCE ONE 10/23 799 DC 10/23 SC 10/23 0801 0811 Desmopressin Acetate 2 MCG BID 10/21 2200 DC 10/22 IV 0843 Dextrose/Water 1,000 ML Q6H 10/21 2000 AC 10/23 IV 0600 Magnesium Sulfate 1 GM ONCE ONE 10/23 0100 DC 10/23 Dextrose/Water 100 ML IV 10/23 0459 0212 Magnesium Sulfate 1 GM ONCE ONE 10/23 0100 DC 10/23 Dextrose/Water 100 ML IV 10/23 0459 0103 Magnesium Sulfate 1 GM .STK-MED ONE 10/23 0057 DC IM 10/23 0058 Magnesium Sulfate 1 GM ONCE ONE 10/22 1800 DC 10/22 Dextrose/Water 100 ML IV 10/22 2159 1958 Pantoprazole Sodium 40 MG BID 10/20 1013 AC 10/23 IV 0912 Potassium Chloride 20 MEQ Q1H 10/23 0100 DC 10/23 IV 10/23 0201 0811 Potassium Chloride 20 MEQ Q1H 10/23 0100 DC 10/23 IV 10/23 0201 0212 Potassium Chloride 20 MEQ ONCE ONE 10/22 1815 DC 10/22 IV 10/22 1816 1900 Potassium Chloride 10 MEQ ONCE ONE 10/22 1800 CAN IV 10/22 1801 Potassium Phosphate 15 mMol ONE ONE 10/22 1115 DC 10/22 Sodium Chloride 250 ML IV 10/22 1518 1320 Sodium Chloride 1,000 ML CONTINOUS INFUSION 10/22 1845 AC 10/23 IV 0913 Vancomycin HCl 1,000 MG Q12H 10/21 1300 AC 10/23 Sodium Chloride 250 ML IV 0103 Vital Signs & I&O Last 24 Hrs of Vitals and I&O: Vital Signs Date Time Temp Pulse Resp B/P Pulse O2 O2 Flow FiO2 Ox Delivery Rate 10/23 799 97 Ventilator 40% 01/08 0800 96.5 78 26 146/100 100 Ventilator 40% 10/23 0759 40 10/23 0637 40 10/23 0400 96 Ventilator 40% 10/23 0347 40 10/23 0113 40 10/23 0000 99 Ventilator 40% 10/23 0000 98.7 86 26 134/74 99 Ventilator 40% 10/22 2206 40 10/22 2000 100 Ventilator 40% 10/22 1939 40 10/22 1654 40 10/22 1600 98.5 115 26 140/60 99 Ventilator 40% 10/22 1600 99 Ventilator 40% 10/22 1445 40 10/22 1200 98 Ventilator 40% 10/22 1113 40 Intake & Output 10/23 1600 10/23 0800 10/23 0000 Intake Total 3808 6287 Output Total 2100 2370 Balance 1708 3917 Intake, IV 3808 6287 Number 0 Bowel Movements Output, Urine 2100 2370 Patient 234 lb 232 lb Weight Exam Other Physical Findings: gen unresponsive heent pupils fixed and dilated cvs s1, s2 tachycardic abd soft, minimal bs+ lungs transmitted ext no edema neuro - negative coloric examination without eye movement, pupils fixed and dilated, no gag reflex, no spontaneous breath Results Last 24 Hrs of Lab Results: Laboratory Tests 10/23/16 0907: Sodium Pending, Potassium Pending, Chloride Pending, Carbon Dioxide Pending, Anion Gap Pending, BUN Pending, Creatinine Pending, Glucose Pending, Calcium Pending, Phosphorus Pending, Magnesium Pending, Total Bilirubin Pending, AST Pending, ALT Pending, Albumin Pending 10/23/16 0500: Anion Gap 11, Estimated GFR > 60, Glucose 134 H, Serum Osmolality 302 H, Calcium 8.5, Phosphorus 3.0, Magnesium 2.0, Total Bilirubin 0.7, AST 175 H, ALT 285 H, Albumin 2.1 L, CBC w Diff NO MAN DIFF REQ, RBC 3.92 L, MCV 88.7, MCH 30.3, RDW 13.6, MPV 8.4, Gran % 74.8, Lymphocytes % 15.1 L, Monocytes % 6.0, Eosinophils % 3.8, Basophils % 0.3, Absolute Granulocytes 7.1 H, Absolute Lymphocytes 1.4, Absolute Monocytes 0.6, Absolute Eosinophils 0.4, Absolute Basophils 0, PUBS MCHC 34.1, Urine Osmolality 141 L 10/22/16 2300: Anion Gap 9, Estimated GFR > 60, Glucose 138 H, Calcium 8.3 L, Phosphorus 2.8, Magnesium 1.6, Total Bilirubin 0.8, AST 165 H, ALT 305 H, Albumin 2.1 L 10/22/16 1950: Anion Gap 10, Estimated GFR > 60, Glucose 125 H, Serum Osmolality 302 H, Calcium 8.2 L, Phosphorus 3.0, Magnesium 1.4 L, Total Bilirubin 0.7, AST 172 H, ALT 318 H, Albumin 2.1 L 10/22/16 1930: Urine Osmolality Cancelled 10/22/16 1615: Anion Gap 10, Estimated GFR > 60, Glucose 130 H, Calcium 8.3 L, Phosphorus 3.5 , Magnesium 1.5 L, Total Bilirubin 0.7, AST 167 H, ALT 344 H, Albumin 2.2 L, Urine Opiates Screen 262.00, Methadone Screen < 40, Barbiturate Screen < 60, Ur Phencyclidine Scrn < 6.00, Amphetamines Screen < 100, U Benzodiazepines Scrn > 800 H, Urine Cocaine Screen 944 H, Urine Cannabis Screen < 5.00, Urine Osmolality 615 10/22/16 1400: Sodium Cancelled, Potassium Cancelled, Chloride Cancelled, Carbon Dioxide Cancelled, Anion Gap Cancelled, BUN Cancelled, Creatinine Cancelled, BUN/ Creatinine Ratio Cancelled 10/22/16 1400: Sodium Cancelled, Potassium Cancelled, Chloride Cancelled, Carbon Dioxide Cancelled, Anion Gap Cancelled, BUN Cancelled, Creatinine Cancelled, Glucose Cancelled, Calcium Cancelled, Phosphorus Cancelled, Magnesium Cancelled, Total Bilirubin Cancelled, AST Cancelled, ALT Cancelled, Albumin Cancelled 10/22/16 1123: Anion Gap 11, Estimated GFR > 60, BUN/Creatinine Ratio 9.2 Impression/Plan Impression/Plan Impression/Plan: Impression 41 year old man * 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
--- NOTE | 2016-10-23 11:27 | NUR ---
resumed pt care at 0730 PT CONTINUES TO BE UNREPSPONSIVE, PUPILS ARE FIXED, 7MM. NO REFLEXES PRESENT. NO OVERBREATHING ON THE VENT AT THE SETTINGS OF AC 26 550 40 5, SATS OF 96% +. NSR 70-80'S, SBP 130-160'S. AM TEMP 92.7, STARTED ON GAYMAR THERAPY. NGT TO L NARES, BROWN OUTPUT NOTED IN TUBING. DE DIOS CATH INSITU. 1200ML U.O IN 1ST HOUR AND PT GIVEN DDAVP SQ X 1 WITH GOOD EFFECT. ICU BUNDLE OBTAINED AND KCL REPLETED PER EMAR. PT REMAINS ON D5W, NS, CEFTAZ AND VANCO. EDEMA +1 GENERALIZED, W GROSS AMT OF SCLERAL EDEMA PRESENT.
[2016-10-23 16:00] VITALS: BP 102/60
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
--- NOTE | 2016-10-23 21:32 | PN- Neurology ---
Subjective Subjective: No change in mental status. No change in exam. Drug levels dropping. Review of Systems: no change. Objective Vital Signs and I&Os Vital Signs Date Time Temp Pulse Resp B/P Pulse O2 O2 Flow FiO2 Ox Delivery Rate 10/23 1999 93 Ventilator 40% 10/23 1931 45 10/23 1627 40 10/23 1600 92 Nasal 40% Cannula 10/23 1600 97.4 98 23 102/60 92 Ventilator 40% 10/23 1325 40 10/23 1200 93 Ventilator 40% 10/23 799 97 Ventilator 40% 10/23 799 96.5 78 26 146/100 100 Ventilator 40% 10/23 0759 40 10/23 0637 40 10/23 0400 96 Ventilator 40% 10/23 0347 40 10/23 0113 40 10/23 0000 99 Ventilator 40% 10/23 0000 98.7 86 26 134/74 99 Ventilator 40% 10/22 2206 40 Intake & Output 10/23 1600 10/23 0800 10/23 0000 10/22 1600 10/22 0810/22 0000 Intake Total 2450 3808 6287 3125 5406 Output Total 3670 2100 2370 1040 4770 Balance -1220 1708 3917 2085 636 Intake, IV 2450 3808 6287 3125 5366 Intake, Oral 0 0 Intake, Tube 40 Irrigant Number 0 0 0 1 Bowel Movements Output, 200 150 Gastric Drainage Output, Urine 3670 2100 2370 840 4620 Patient 234 lb 232 lb Weight Physical Exam: Still unresponsive to painful stimule. Still with blown pupils. Unreactive pupils. No corneal response. No doll's eye response. No gag reflex. No posturing. Not breathing over vent. Current Medications: Current Medications Sig/Rose Start time Last Medication Dose Route Stop Time Status Admin Artificial Tears 2 GTT TID 10/20 1000 AC 10/23 OPH 1554 Ceftazidime 1,000 MG IQ8 10/21 1600 AC 10/23 IV 1553 Desmopressin Acetate 2 MCG ONCE ONE 10/23 799 DC 10/23 SC 10/23 0801 0811 Dextrose/Water 1,000 ML Q6H 10/21 1999 AC 10/23 IV 2023 Magnesium Sulfate 1 GM Q2H 10/23 1530 DC 10/23 Dextrose/Water 100 ML IV 10/23 1929 1716 Magnesium Sulfate 1 GM .STK-MED ONE 10/23 0206 DC IM 10/23 0207 Magnesium Sulfate 1 GM ONCE ONE 10/23 0100 DC 10/23 Dextrose/Water 100 ML IV 10/23 0459 0212 Magnesium Sulfate 1 GM ONCE ONE 10/23 010 DC 10/23 Dextrose/Water 100 ML IV 10/23 0459 0103 Magnesium Sulfate 1 GM .STK-MED ONE 10/23 0057 DC IM 10/23 0058 Magnesium Sulfate 1 GM ONCE ONE 10/22 1800 DC 10/22 Dextrose/Water 100 ML IV 10/22 2159 1958 Pantoprazole Sodium 40 MG BID 10/20 1013 AC 10/23 IV 0912 Potassium Chloride 20 MEQ Q1H 10/23 1530 DC 10/23 IV 10/23 1731 1815 Potassium Chloride 20 MEQ Q1H 10/23 1000 DC 10/23 IV 10/23 1101 1112 Potassium Chloride 20 MEQ Q1H 10/23 0100 DC 10/23 IV 10/23 0201 0811 Potassium Chloride 20 MEQ Q1H 10/23 0100 DC 10/23 IV 10/23 0201 0212 Sodium Chloride 1,000 ML CONTINOUS INFUSION 10/22 1845 AC 10/23 IV 1445 Vancomycin HCl 1,000 MG Q12H 10/21 1300 AC 10/23 Sodium Chloride 250 ML IV 1206 Results Last 24 Hours of Lab Results: Laboratory Tests 10/23 10/23 10/23 10/23 2105 1705 1430 0907 Chemistry Sodium (137 - 145 mmol/L) Pending 145 145 146 H Potassium (3.5 - 5.1 mmol/L) Pending 3.7 3.3 L 3.5 Chloride (98 - 107 mmol/L) Pending 113 H 116 H 117 H Carbon Dioxide (22 - 30 mmol/L) Pending 21 L 20 L 20 L Anion Gap (5 - 16) Pending 11 10 10 BUN (9 - 20 mg/dL) Pending 6 L 6 L 6 L Creatinine (0.7 - 1.2 mg/dL) Pending 1.2 1.1 1.1 Estimated GFR (>60 ml/min) > 60 > 60 > 60 Glucose (65 - 99 mg/dL) Pending 115 H 121 H 132 H Calcium (8.4 - 10.2 mg/dL) Pending 8.0 L 8.2 L 8.6 Phosphorus (2.5 - 4.5 mg/dL) Pending 5.1 H 3.9 2.9 Magnesium (1.6 - 2.3 mg/dL) Pending 1.7 1.7 1.9 Total Bilirubin (0.2 - 1.3 mg/dL) Pending 0.5 0.6 0.7 AST (17 - 59 U/L) Pending 157 H 161 H 185 H ALT (21 - 72 U/L) Pending 223 H 238 H 279 H Albumin (3.5 - 5.0 g/dL) Pending 1.8 L 1.9 L 2.1 L Toxicology Urine Opiates Screen (>2000 NG/ML) 173.00 Methadone Screen (>300 NG/ML) < 40 Barbiturate Screen (>200 NG/ML) < 60 Ur Phencyclidine Scrn (>25 NG/ML) < 6.00 Amphetamines Screen (>1000 NG/ML) < 100 U Benzodiazepines Scrn (>200 NG/ML) > 800 H Urine Cocaine Screen (>300 NG/ML) 243 Urine Cannabis Screen (>50 NG/ML) < 5.00 10/2307 0500 2300 Chemistry Sodium (137 - 145 mmol/L) 146 H 144 Potassium (3.5 - 5.1 mmol/L) 3.0 L 2.9 *L Chloride (98 - 107 mmol/L) 115 H 114 H Carbon Dioxide (22 - 30 mmol/L) 20 L 20 L Anion Gap (5 - 16) 11 9 BUN (9 - 20 mg/dL) 6 L 7 L Creatinine (0.7 - 1.2 mg/dL) 1.1 1.2 Estimated GFR (>60 ml/min) > 60 > 60 Glucose (65 - 99 mg/dL) 134 H 138 H Serum Osmolality (285 - 295 MOSM/KG) 302 H Calcium (8.4 - 10.2 mg/dL) 8.5 8.3 L Phosphorus (2.5 - 4.5 mg/dL) 3.0 2.8 Magnesium (1.6 - 2.3 mg/dL) 2.0 1.6 Total Bilirubin (0.2 - 1.3 mg/dL) 0.7 0.8 AST (17 - 59 U/L) 175 H 165 H ALT (21 - 72 U/L) 285 H 305 H Albumin (3.5 - 5.0 g/dL) 2.1 L 2.1 L Hematology CBC w Diff NO MAN DIFF REQ WBC (4.8 - 10.8 /CUMM) 9.4 RBC (4.70 - 6.10 /CUMM) 3.92 L Hgb (14.0 - 18.0 G/DL) 11.9 L Hct (42 - 52 %) 34.8 L MCV (80.0 - 94.0 FL) 88.7 MCH (27.0 - 31.0 PG) 30.3 RDW (11.5 - 14.5 %) 13.6 Plt Count (130 - 400 /CUMM) 108 L MPV (7.4 - 10.4 FL) 8.4 Gran % (42.2 - 75.2 %) 74.8 Lymphocytes % (20.5 - 51.1 %) 15.1 L Monocytes % (1.7 - 9.3 %) 6.0 Eosinophils % (0 - 5 %) 3.8 Basophils % (0.0 - 2.0 %) 0.3 Absolute Granulocytes (1.4 - 6.5 /CUMM) 7.1 H Absolute Lymphocytes (1.2 - 3.4 /CUMM) 1.4 Absolute Monocytes (0.10 - 0.60 /CUMM) 0.6 Absolute Eosinophils (0.0 - 0.7 /CUMM) 0.4 Absolute Basophils (0.0 - 0.2 /CUMM) 0 PUBS MCHC (33.0 - 37.0 G/DL) 34.1 Urines Urine Osmolality (300 - 1000 MOSM/KG) 141 L Recent Imaging Studies: EEG - isoelectric. NCHCT - loss of G/w differentiation. Assessment/Plan Assessment: 41 year old s/p overdose of heroine, cocaine, benzos and more, with PEA and anoxic brain injury. Clinical exam, EEG and NCHCT are all supportive of brain . We are still waiting drug levels to drop. Plan: 1. Discuss with Dr. Arreola what is the acceptable threshold for pronouncing brain for these drugs blood levels in the blood. 2. Will then require an apnea test. 3. Correct electrolyte abn.
[2016-10-24] VITALS: BP 100/70
--- NOTE | 2016-10-24 | NUR ---
PATIENT UNRESPONSIVE TO TACTILE STIMULI. MONITOR SINUS TACHYCARDIA AT RATE OF 105. BP 100/70 MANUALLY. PUPILS 7 AND UNRESPONSIVE TO LIGHT. IVF OF D5W AT 100 ML/HR. IVF OF NS AT 340 ML/HR. MATCHING URINE OUTPUT FROM THIS HOUR.
--- NOTE | 2016-10-24 01:00 | NUR ---
O2 SAT=89-88% ON 45%.SUCTIONED OF THIN YELLOW TINGED SECRETIONS. SEEN BY DR. BARKER.FIO2 INCREASED TO 50%.
--- NOTE | 2016-10-24 02:42 | Event Note ---
Event Note Event Note: Situation: * Desaturation despite increased FiO2 on ventilator * Hypotension * Decreased urine output Brief: * During the overnight shift, Mr Rao was noted to have progressive increased FiO2 requirements, initially at 40% up to 75% FiO2 by 3 AM this morning * Attempts to titrate down his maintenance fluids resulted in a drop in SBP and thus we maintained him at the the current rate of fluid resuscitation * Physical exam findings were positive for significant diffuse bilateral crackles * Follow-up stat CXR: New appearance of bilateral airspace opacities with a perihilar distribution. Pulmonary edema is favored, although infectious process not excluded. * Despite maximum FiO2 of 100% on the vent settings, he was noted to have progressive desaturations. Simultaneously, despite increased fluid resuscitation rate his blood pressure progressively continued to decline into the 60s and were thus unable to increase the PEEP to help with oxygenation * In line with the patient's mother's prior requests he remained DNR and no plan for pressor support * We immediately contacted the patient's family and notified them of the rapid decline in his condition * Over the next couple of hours his blood pressure and saturations continued to drop with subsequent bradycardia and asystole * Mr. Rao was declared at 0701hrs on 10/24/2016 with his family members by his side * range examiner was contacted, paperwork was completed. Family did request for autopsy and this was relayed directly to the biomedical equipment support specialist
--- NOTE | 2016-10-24 03:00 | NUR ---
BP DECREASED AFTER DECREASE IN IV FLUIDS TO 80/50.NS INCREASED TO 400 ML/HR AT 0330.CHEST XRAY DONE.
--- NOTE | 2016-10-24 03:30 | NUR ---
PATIENT BP DECREASED TO 80/50 AFTER NS DECREASED TO 100 ON THE NS AND 100 ON THE D5W.O2 SAT CONTINUES TO BE 86% ON 75%. INCREASED TO 100%.
--- NOTE | 2016-10-24 04:00 | NUR ---
BP DECREASED TO 62/DOP. IVF INCREASED TO 400 ML/HR THEN 500 ML/HR
--- NOTE | 2016-10-24 04:06 | RADIOLOGY REPORT ---
EXAMINATION: XR PORTABLE CHEST CLINICAL INFORMATION: New onset bilateral crackles. Desaturation on ventilator. COMPARISON: 10/22/2016 TECHNIQUE: Portable view of the chest was obtained. FINDINGS: The endotracheal tube terminates 6 cm above the rachel. Enteric tube extends below the diaphragm. Cardiac leads overlie the chest. The lungs are well expanded. There are new bilateral airspace opacities with a perihilar distribution. Small pleural effusions. No pneumothorax. The cardiomediastinal silhouette is unchanged. IMPRESSION: New appearance of bilateral airspace opacities with a perihilar distribution. Pulmonary edema is favored, although infectious process not excluded.
--- NOTE | 2016-10-24 05:00 | NUR ---
BP=50/DOP. AWARE. SPOKE WITH EARLIER. MOTHER SPOKE WITH [facility].O2 SAT=75% FAMILY MEMBERS AT BEDSIDE. [facility] STATES MOTHER DOES NOT WANT PATIENT TO BE A DONOR. FAMILY DOES NOT WANT VASOPRESSORS.
--- NOTE | 2016-10-24 06:00 | NUR ---
bp and o2 sat continue to drop despite o2 at 100% on ventilator and total iv fluid at 700 ml/hr.
--- NOTE | 2016-10-24 07:01 | NUR ---
monitor bradycardia and then agonal rhythm. ivf,ventilator discontinued after patient pronounced at 0701.spoke with gilma at [facility].
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
== END 2016-10-24 07:15 | disposition expired | DRG 816 ==
LOC: ERH 03:07 → CRI 06:18 → ERHI 06:18 → CRI 06:18
PROVIDERS: Internal Medicine; Internal Medicine Infectious Disease; Internal Medicine Interventional Cardiology; Pediatrics; ADMIT Internal Medicine
PROC: 0BH17EZ Insertion of Endotracheal Airway into Trachea, Via Natural or Artificial Opening (ICD-10-PCS; principal; 2016-10-20)
PROC: 5A1955Z Respiratory Ventilation, Greater than 96 Consecutive Hours (ICD-10-PCS; principal; 2016-10-20)
PROC: 5A12012 Performance of Cardiac Output, Single, Manual (ICD-10-PCS; 2016-10-20)
DX: T40.1X1A Poisoning by heroin, accidental (unintentional), initial encounter (principal); I46.8 Cardiac arrest due to other underlying condition; G93.1 Anoxic brain damage, not elsewhere classified; J96.00 Acute respiratory failure, unspecified whether with hypoxia or hypercapnia; K72.00 Acute and subacute hepatic failure without coma; N17.9 Acute kidney failure, unspecified; F19.10 Other psychoactive substance abuse, uncomplicated; G93.6 Cerebral edema; J69.0 Pneumonitis due to inhalation of food and vomit; E87.0 Hyperosmolality and hypernatremia; K92.2 Gastrointestinal hemorrhage, unspecified
CPT/HCPCS: 84133; 84300; CCU; 36415; 74000; 80307; 81001; 82436; 82570; 87040; 87070; 87071; 87086; 87147; 93005; 93010; 93306; 94799; 95816; 96374; 96375; 99291; G0480; J0131; J0610; J0713; J1265; J1815; J2310; J2597; J3370; J7040; J7060; P9047